=== PATIENT | female | born 1950 | race Caucasian/White ===

== ENCOUNTER → 2016-08-05 09:28 | Outpatient (CLI) | payer MEDICARE ==
[2016-01-18 14:34] VITALS: BMI 29.2
[~2016-08-05 09:28] MED LIST: ASMANEX0.24 GM INH; BROVANA15 MCG/2 M INH; CARAFATE1 G PO; CATAPRES TTS-10.1 MG TD; COREG25 MG PO; COZAAR50 MG PO; ELAVIL10 MG PO; ELIQUIS5 MG PO; HYDROCODON-ACE1 EAC7 PO; METFORMIN HCL500 M1 PO; MIRALAX17 GM PO; MUCINEX DM ER1 EAC1 PO; NORVASC5 MG PO; NP THYROID30 MG PO; PEPCID20 MG PO; PREDNISONE20 MG PO; PROTONIX40 MG PO; PULMICORT0.5 MG/21 INH; SINGULAIR10 MG PO; TRICOR145 MG PO; VITAMIN B-1000 MCG/M SQ; XOPENEX 1.1.25 MG/3 UPD; XOPENEX HFA15 GM INH; ZETIA10 MG PO
[2016-08-05 11:24] LABS: ALBUMIN 4.1 g/dL (3.4-5.0); BILIRUBIN - DIRECT 0.07 mg/dL (0.00-0.30); BILIRUBIN - INDIRECT 0.17 mg/dL (0.00-1.00); BILIRUBIN - TOTAL 0.24 mg/dL (0.2-1.3); PROTEIN - SERUM 7.2 g/dL (6.4-8.2)
== END | disposition home or self-care (01) ==
LOC: D.US 09:28
PROVIDERS: Internal Medicine Gastroenterology
DX: K76.0 Fatty (change of) liver, not elsewhere classified (principal)

== ENCOUNTER 2016-11-06 12:06 | Inpatient (IN) | payer MEDICARE ==
[~2016-11-06] VITALS: Ht 157.5 cm; Wt 74.6 kg
--- NOTE | ~2016-11-06 | HEMODYNAMI ---
PATIENT:MEHRAN LAMAR MEDICAL RECORD: [id number] : 54 LOC[id number] ADMISSION DATE: 11/06/16 Generatedon:11/07/201613:51 Patient name: MEHRAN LAMAR Patient #: [id number] SSN: DO B: 1950 Date of study: 11/07/2016 Page: Of Hemodynamic Procedure Report Patient Data Patient Demographics Procedure consent was obtained First Name: MEHRAN Gender: Female Last Name: BRIANDA : 1950 [facility] Initial: SHYAM Age: 66 year(s) Patient #: [id number] Race: Unknown Additional ID: [id number] Contact details Address: [address] [place] [address] State: [place] City: [place] Zip code: [address] Admission Admission Data Admission Date: 11/06/2016 Admission Time: 18:06 Room #: D.2122 Procedure Procedure Types Cath Procedure Diagnostic Procedure LHC LHC w/Coronaries w/Grafts Miscellaneous Procedures Moderate Sedation up to 15 minutes Peripheral Cath Diagnostic Procedure Cath Peripheral Four Vessel Arteriogram Procedure Description Procedure Date Procedure Date: 11/07/2016 Procedure Start Time: 13:31 Procedure End Time: 13:49 Procedure Staff Name Function Keith Maldonado MD Performing Physician Shaan Calle RT Scrub Kristine Williamson RN Nurse Chemo Santos RT Monitor Procedure Data Cath Procedure Fluoroscopy Diagnostic fluoroscopy Total fluoroscopy Time: 3.1 time: 3.1 min min Diagnostic fluoroscopy Total fluoroscopy dose: 384 dose: 384 mGy mGy Contrast Material Contrast Material Type Amount (ml) Isovue 300 102 Entry Location Entry Primary Successful Side Size Upsize Upsize Entry Closure Succes sful Closure Location (Fr) 1 (Fr) 2 (Fr) Remarks Device Remarks Femoral Right 5 Fr Exoseal artery Estimated blood loss: 10 ml Diagnostic catheters Device Type Used For End Catheter Placement Cordis 5Fr JL 4.0 Procedure Catheter (MP) Cordis 5Fr 3DRC Catheter Procedure (MP) Cordis 5Fr Pigtail Procedure Catheter (MP) Procedure Complications No complications Procedure Medications Medication Administration Route Dosage Oxygen NC 2 l/min Heparin Flush Bag added to field 2 bags (1000units/500ml NS) Lidocaine 2% added to field 20 Zofran I.V. 4 mg Morphine I.V. 4 mg Morphine I.V. 2 mg Morphine I.V. 2 mg Morphine I.V. 2 mg Lopressor I.V. 5 mg Morphine I.V. 2 mg Hemodynamics Rest Heart Rate: 67 (bpm) Pressure Samples Time Site Value (mmHg) Purpose Heart Use Rate(bpm) 13:34 AO 180/81(123) Snapshot 78 13:41 LV 200/-12,18 Snapshot 74 13:42 AO 190/75(124) Pullback 83 13:42 LV 196/18,41 Pullback 83 Gradients Valve Time Site 1 Site 2 Mean SEP/DFP Peak To Heart Use (mmHg) (sec/min) Peak Rate (mmHg) (bpm) Aortic 13:42 LV AO 31 21 6 83 196/18,41 190/75(124) Calculations Valve P-P Mean Valve Index Valve Source Name Gradient Area Flow (cm2) Aortic 6 31 6 31 Snapshots Pre Cath Intra NCS Post Cath Vital Signs Time Heart Resp SPO2 etCO2 XX4yeiq NIBP (mmHg) Rhythm Pain Sedation Rate (ipm) (%) (mmHg) (mmHg) Status Level (bpm) 12:59:52 74 23 93 0 0 179/79(124) NSR 0 (11) 10(A) , No pain 13:04:25 67 16 97 0 0 172/80(146) NSR 0 (11) 10(A) , No pain 13:08:55 69 16 98 0 0 174/86(124) NSR 0 (11) 10(A) , No pain 13:13:23 71 12 97 0 0 180/82(137) NSR 0 (11) 10(A) , No pain 13:17:54 72 13 98 0 0 167/84(140) NSR 0 (11) 10(A) , No pain 13:22:22 73 16 96 0 0 177/90(138) NSR 0 (11) 10(A) , No pain 13:26:54 74 16 96 0 0 177/88(135) NSR 0 (11) 10(A) , No pain 13:31:29 77 16 98 0 0 174/86(98) NSR 0 (11) 10(A) , No pain 13:35:57 84 16 97 0 0 188/92(140) NSR 0 (11) 10(A) , No pain 13:40:29 86 16 95 0 0 177/85(121) NSR 0 (11) 10(A) , No pain 13:45:00 84 21 96 0 0 186/95(143) NSR 0 (11) 10(A) , No pain 13:49:28 77 6 94 0 0 176/85(120) NSR 0 (11) 10(A) , No pain Medications Time Medication Route Dose Verified Delivered Reason Notes Effectiveness by by 13:10:42 Oxygen NC 2 Keith Kristine Per l/min JoelEdgar Williamson RN physician 13:10:51 Heparin Flush added 2 Keith Keiht used for Bag to bags [facility] procedure (1000units/500ml field MD LOPEZ NS) 13:10:59 Lidocaine 2% added 20ml Keith Keith used for to vial [facility] procedure field MD LOPEZ 13:12:06 Zofran I.V. 4 mg Keith Kristine Per JoelRylie Williamson RN physician 13:24:39 Morphine I.V. 4 mg Keith Kristine for sedation administe red Asher Clay DUVALL MD 13:28:13 Morphine I.V. 2 mg Keith Kristine for sedation administe red JoelEdgar DUVALL MD 13:30:16 Morphine I.V. 2 mg Keith Kristine for sedation administe red AsherEdgar DUVALL MD 13:36:59 Morphine I.V. 2 mg Keith Kristine for sedation administe red Asher Clay DUVALL MD 13:38:26 Lopressor I.V. 5 mg Keith Kristine for Asher Clay kumar MD 13:39:47 Morphine I.V. 2 mg Keith Kristine for sedation administe red Asher Clay DUVALL MD Procedure Log Time Note 12:25:14 Shaan Calle RT(R) sent for patient. Start room use. 12:33:20 Time tracking: Regular hours 12:33:25 Plan of Care:Hemodynamics will remain stable., Cardiac rhythm will remain stable., Comfort level will be maintained., Respiratory function will remain adequate., Patient/ family verbilizes understanding of procedure., Procedure tolerated without complication., Recovers from procedure without complications.. 12:48:53 Patient received from PCU to CCL 1 Alert and oriented. Tansferred to table in Supine position. 12:48:55 Warm blankets applied, and yvonne hugger turned on for patient comfort. 12:48:56 Correct patient and procedure confirmed by team. 12:48:57 Signed procedure consent form obtained from patient. 12:48:57 ECG and BP/O2 sat monitors applied to patient. 12:58:33 Vital chart was started 12:58:34 Baseline sample Acquired. 12:58:40 Rhythm: sinus rhythm 12:58:41 Full Disclosure recording started 12:58:47 H&P Date Dictated: 11/06/2016 Within 30 days and on chart., H&P Addendum completed by physician on day of procedure. (MUST COMPLETE FOR ALL OUTPATIENTS). 12:58:48 Pre-procedure instructions explained to patient. 12:58:48 Pre-op teaching completed and patient verbalized understanding. 12:58:50 Family in waiting room. 12:58:51 Patient NPO since Midnight. 12:58:52 Is the patient allergic to Iodine/contrast media? No. 12:59:00 Is patient on blood thinner?No 12:59:11 Patient diabetic? Yes. 12:59:18 Patient not . Patient is over age 55. 12:59:21 Previous problem with sedation/anesthesia? No ? 12:59:28 Pre procedure: right dorsailis pedis pulse 1+ Palpable, but thready & weak; easily obliterated 12:59:32 Patient pain scale 0/10 ?. 13:00:04 IV patent on arrival in right hand with 0.9% NaCl at KVO. 13:00:48 If diabetic: On Metformin? Yes 13:00:56 If on Metformin: Last Dose? 11/03/2016 13:02:56 Last dose of Eliquis was 11/03/16. 13:02:59 Snore? Yes 13:03:00 Sleep apnea? Yes 13:03:02 Deviated septum? No 13:03:02 Opens mouth fully? Yes 13:03:03 Sticks out tongue? Yes 13:03:09 Airway obstruction? Yes COPD, Asthma 13:03:33 Dentures? No ? 13:03:37 Lab results completed and on chart. 13:03:41 Right groin area was prepped with chlora-prep and draped in sterile fashion 13:03:42 Alarms reviewed by R. N. 13:03:43 Sharps counted by scrub and verified by R.N. 13:03:51 Use device set Femoral Dx 13:03:53 Tegaderm 4 x 4 opened to sterile field. 13:03:54 Acist Hand Control opened to sterile field. 13:03:54 Acist Manifold opened to sterile field. 13:03:56 Acist Syringe opened to sterile field. 13:03:56 Bag Decanter opened to sterile field. 13:03:57 Medline Cath Pack opened to sterile field. 13:03:57 Terumo 5Fr Broadway Sheath opened to sterile field. 13:03:57 St Aaron 260cm J .035 wire opened to sterile field. 13:03:58 Diagnostic Infinity 5Fr Multipack catheter opened to sterile field. 13:10:42 Oxygen 2 l/min NC was administered by Kristine Williamson RN; Per physician; 13:10:51 Heparin Flush Bag (1000units/500ml NS) 2 bags added to field was administered by Keith Maldonado MD; used for procedure; 13:10:59 Lidocaine 2% 20ml vial added to field was administered by Keith Maldonado MD; used for procedure; 13:11:21 Zero performed for pressure channel P1 13:11:40 Zero performed for pressure channel P1 13:12:06 Zofran 4 mg I.V. was administered by Kristine Williamson RN; Per physician; 13:23:23 --------ALL STOP TIME OUT------ 13:23:24 Final Timeout: patient, procedure, and site verified with staff and physician. All members of the team are in agreement. 13:23:36 Right groin site verified by team. 13:23:40 Physical assessment completed. ASA score P 2 - A patient with mild systemic disease as per Keith Maldonado MD. 13:23:43 Sedation plan: IV Moderate Sedation Morphine 13:24:39 Morphine 4 mg I.V. was administered by Kristine Williamson RN; for sedation; administered SIVP 13:28:13 Morphine 2 mg I.V. was administered by Kristine Williamson RN; for sedation; administered SIVP 13:30:16 Morphine 2 mg I.V. was administered by Kristine Williamson RN; for sedation; administered SIVP 13:31:32 Procedure started. 13:31:38 Local anesthetic to right femoral artery with Lidocaine 2% by Keith Maldonado MD.INITIAL ACCESS ONLY 13:33:06 A 5 Fr sheath was inserted into the Right Femoral artery 13:33:15 A Cordis 5Fr JL 4.0 Catheter (MP) was advanced over the wire and used for Procedure. 13:34:37 LCA angiography performed. 13:35:24 Catheter removed. 13:35:33 A Cordis 5Fr 3DRC Catheter (MP) was advanced over the wire and used for Procedure. 13:36:33 RCA angiography performed. 13:36:59 Morphine 2 mg I.V. was administered by Kristine Williamson RN; for sedation; administered SIVP 13:38:26 Lopressor 5 mg I.V. was administered by Kristine Williamson RN; for hypertension; 13:38:56 ANDREWS to Diag angiography performed. 13:39:45 Right subclavian angiography performed 13:39:47 Morphine 2 mg I.V. was administered by Kristine Williamson RN; for sedation; administered SIVP 13:39:54 Left subclavian angiography performed 13:40:00 Left carotid angiography performed. 13:40:11 Catheter removed. 13:40:18 A Cordis 5Fr Pigtail Catheter (MP) was advanced over the wire and used for Procedure. 13:40:39 Procedure type changed to Cath procedure, Diagnostic procedure, LHC, LHC w/Coronaries w/Grafts, Miscellaneous Procedures, Moderate Sedation up to 15 minutes, Peripheral Cath Diagnostic Procedure, Cath Peripheral, Four Vessel Arteriogram 13:42:21 LV angiography performed. 13:42:22 LV gram done using MARIE 13:42:31 EF : 55 % 13:42:47 LV hemodynamics recorded. 13:42:59 Injector settings: Ml/sec: 10, Volume: 20, 13:43:01 Catheter removed. 13:43:19 Cordis 5Fr Exoseal opened to sterile field. 13:44:32 Sheath removed intact; hemostasis achieved with Exoseal to the Right Femoral artery. 13:44:35 Procedure ended.(Physican Out) 13:46:18 Fluoroscopy time 03.10 minutes. 13:46:22 Fluoroscopy dose: 384 mGy 13:46:22 Flurop Dose total: 384 13:46:28 Contrast amount:Isovue 300 102ml. 13:46:31 Sharps counted by scrub and verified by R.N. 13:46:33 Insertion/operative site no bleeding no hematoma. 13:46:38 Post-op/insertion site Right Femoral artery dressed using a 4 x 4 and Tegaderm. 13:46:40 Post Procedure Pulses reassessed and unchanged 13:46:43 Post-procedure physical assessment completed. ASA score P 2 - A patient with mild systemic disease as per Keith Maldonado MD. 13:46:47 Post procedure rhythm: unchanged. 13:46:50 Estimated blood loss: 10 ml 13:46:53 Post procedure instruction explained to patient.Patient verbalizes understanding. 13:46:53 Patient needs reinforcement of post procedure teaching. 13:47:03 Procedure and supply charges have been captured, reviewed, submitted and are correct. 13:47:08 Procedure Complication : No complications 13:49:43 Vital chart was stopped 13:49:43 See physician's report for complete and final results. 13:49:46 Report given to PCU. 13:49:49 Patient transfered to PCU with Bed. 13:49:52 Procedure ended. 13:49:52 Full Disclosure recording stopped 13:49:57 End room use (Document Last) Device Usage Item Name Manufacture Quantity Catalog Hospital Part Current Minimal Lo t# / Number Charge Number Stock Stock Serial# Code Tegaderm 4 1 [id number] [id number] 767028 5 x 4 Acist Hand Acist 1 18067 443878 624743 494208 5 Control [employer] Inc Acist Acist 1 36333 005728 389623 540783 5 Manifold [employer] Inc Acist Acist 1 31306 265528 547697 525009 20 Syringe Medical Systems Inc Bag Microtek 1 2002S 105884 31559 869467 5 Clear Books. Medline Cardinal 1 [id number] 128790 92034 556834 5 FID3 Terumo 5Fr Terumo 1 [id number] 102332 470086 366922 [address] Aaron 1 421820 236575 482450 310239 30 260cm J .035 wire Diagnostic Cardinal 1 [id number] 523537 30408 646028 30 Infinity Health 5Fr Multipack catheter Cordis 5Fr Cardinal 1 053472 5 JL 4.0 Health Catheter (MP) Cordis 5Fr Cardinal 1 399991 5 3DRC Health Catheter (MP) Cordis 5Fr Cardinal 1 224451 5 Pigtail Health Catheter (MP) Cordis 5Fr Cardinal 1 EX500 242491 534806 484544 10 Physician Practice [employer] Signature Audit [place] Stage Time Signature Unsigned Intra-Procedure 11/07/2016 Chemo Santos 1:51:45 PM RT(R) Signatures Monitor : Chemo Santos RT Signature : Date : Time : [address] [address]
[2016-11-06 12:32] LABS: BASOPHILS 0.4 % (0.0-2.0); EOSINOPHILS 0 % (0-7); HEMATOCRIT 36.7 % (36.0-48.0); IMMATURE GRANULOCYTES 0.3 % (0-5); LYMPHOCYTES 34.9 % (15-50); MCH 26.8 pg (26.0-34.0); MCHC 32.7 g/dL (31.0-37.0); MCV 82.1 fL (80.0-100.0); MEAN PLATELET VOLUME 10.5 fL (7.4-10.4); MONOCYTES 8.5 % (2-11); NEUTROPHILS 55.9 % (40-80); PLATELET COUNT 284 10x3/uL (130-400); RBC 4.47 10x6/uL (4.00-5.40); RDW 13.3 % (11.5-14.5); WBC 7.2 10x3/uL (4.8-10.8)
[2016-11-06 12:47] LABS: ALBUMIN 3.7 g/dL (3.4-5.0); ALKALINE PHOSPHATASE 120 U/L (46-116); ALT (SGPT) 29 U/L (10-68); BILIRUBIN - TOTAL 0.23 mg/dL (0.2-1.3); CALC OSMOLALITY 280 mosm/kg (275-300); CALCIUM 8.7 mg/dL (8.5-10.1); CARBON DIOXIDE 25.7 mmol/L (21.0-32.0); CHLORIDE - SERUM 105 mmol/L (98-107); CREATININE - SERUM 0.7 mg/dL (0.6-1.3); GLUCOSE 123 mg/dL (74-106); POTASSIUM - SERUM 3.8 mmol/L (3.5-5.1); PROTEIN - SERUM 7.3 g/dL (6.4-8.2); SODIUM 141 mmol/L (136-145); UREA NITROGEN 9 mg/dL (7-18); eGFR NON AFRICAN AMERICAN 89 mL/min (90-120)
[2016-11-06 12:58] LABS: CHOL - HDL RATIO 10.5 ratio (2.3-4.1); CHOLESTEROL, TOTAL 366 mg/dL (0-200); CKMB 0.7 U/L (0.0-3.6); CREATINE KINASE 23 UL (21-215); HDL CHOLESTEROL 35 mg/dL (32-96); TRIGLYCERIDE 442 mg/dL (30-200)
[2016-11-06 13:08] LABS: TROPONIN-I < 0.017 ng/mL (0.000-0.060)
[2016-11-06 17:29] LABS: CKMB 0.7 U/L (0.0-3.6); CREATINE KINASE 18 UL (21-215)
[2016-11-06 17:36] LABS: TROPONIN-I < 0.017 ng/mL (0.000-0.060)
--- NOTE | 2016-11-06 22:38 | NUR ---
NEWLY ORDERED HS MEDS GIVEN TO PT. EXPLAINED TO HER THAT IS SHE HAS CHEST PAIN, SHE CAN REQUEST IV MORPHINE. PT NOW EATING A SANDWICH. WILL MONITOR.
[2016-11-06 22:52] LABS: CKMB 0.4 U/L (0.0-3.6); CREATINE KINASE 12 UL (21-215); TROPONIN-I < 0.017 ng/mL (0.000-0.060)
[2016-11-07 03:05] VITALS: BP 144/42; Ht 157.5 cm; Wt 74.6 kg
--- NOTE | 2016-11-07 04:00 | NUR ---
PT RESTING WITH NO DISTRESS. SALINE LOCK TO RIGHT HAND. O2 @ 2L/NC WITH NON LABORED RESPIRATIONS. SR PER TELEMETRY. NPO UNTIL SEEN BY DAYCARE WORKER IN AM.
[2016-11-07 05:09] LABS: BASOPHILS 0.5 % (0.0-2.0); EOSINOPHILS 0 % (0-7); HEMOGLOBIN 10.6 g/dL (12-16); IMMATURE GRANULOCYTES 0.3 % (0-5); LYMPHOCYTES 43.5 % (15-50); MCH 26.6 pg (26.0-34.0); MCHC 32.1 g/dL (31.0-37.0); MCV 82.9 fL (80.0-100.0); MEAN PLATELET VOLUME 10.6 fL (7.4-10.4); MONOCYTES 9.8 % (2-11); NEUTROPHILS 45.9 % (40-80); PLATELET COUNT 259 10x3/uL (130-400); RBC 3.98 10x6/uL (4.00-5.40); RDW 13.6 % (11.5-14.5); WBC 5.8 10x3/uL (4.8-10.8)
[2016-11-07 05:39] LABS: ALBUMIN 3.2 g/dL (3.4-5.0); ALKALINE PHOSPHATASE 95 U/L (46-116); ALT (SGPT) 30 U/L (10-68); BILIRUBIN - TOTAL 0.25 mg/dL (0.2-1.3); CALC OSMOLALITY 282 mosm/kg (275-300); CALCIUM 8.5 mg/dL (8.5-10.1); CHLORIDE - SERUM 105 mmol/L (98-107); CKMB 0.9 U/L (0.0-3.6); CREATINE KINASE 13 UL (21-215); CREATININE - SERUM 0.7 mg/dL (0.6-1.3); GLUCOSE 117 mg/dL (74-106); PROTEIN - SERUM 6.5 g/dL (6.4-8.2); SODIUM 142 mmol/L (136-145); UREA NITROGEN 10 mg/dL (7-18); eGFR NON AFRICAN AMERICAN 89 mL/min (90-120)
[2016-11-07 05:42] LABS: TROPONIN-I < 0.017 ng/mL (0.000-0.060)
[2016-11-07 07:55] VITALS: BP 155/74
--- NOTE | 2016-11-07 08:29 | NUR ---
ASSESSMENT COMPLETED. TELEMERTY SHOWS SR, O2 AT 2 L/M PER NC. RIGHT HAND IV WITH NS AT 75. DENIES ANY NEEDS. CALL LIGHTIN REACH WITH SR UP
[2016-11-07 11:25] VITALS: BP 150/72
--- NOTE | 2016-11-07 11:35 | NUR ---
PT GOING TO DRAG SAWYER. VALIUM 5 MG PO GIVEN FOR PRE OP. PT STATES SHES ALLERGIC TO BENADRYL SO NONE WAS GIVEN. TO DRAG SAWYER PER BED
--- NOTE | 2016-11-07 11:46 | NUR ---
PT WAITING FOR CATH. DENIES ANY NEEDS. CALL LIGHT IN REACH WITH SR UP. WILL MONITOR
--- NOTE | 2016-11-07 13:15 | NUR ---
PT BACK FROM VERIFICATION MANAGER. V/S STABLE. RIGHT GROIN SOFT WITH DRSG DRY AND INTACT.TELEMERTY SHOWS SR. WILL MONITOR
--- NOTE | 2016-11-07 15:19 | NUR ---
V/S STABLE. RIGHT GROIN SOFT WITH DRSG DRY AND INTACT,PPP. TELEMERTY SHOWS SR. CALL LIGHT IN REACH WITH SR UP. TYLENOL 1000MG GIVEN FOR HEADACHE. WILL MONITOR
--- NOTE | 2016-11-07 17:02 | NUR ---
Patient Name: MEHRAN LAMAR Admission Status: ER Accout number: [id number] Admission Date: 11-06-2016 : 1950 Admission Diagnosis: Attending: RYAN Current LOS: 1 Anticipated DC Date: 11-07-2016 Planned Disposition: Home Primary Insurance: [employer] CHOICE PPO MCR ADVANT Discharge Planning Comments: * Is the patient Alert and Oriented? Yes 0 * How many steps to enter\exit or inside your home? NONE 0 * PCP [address] 0 * Pharmacy [facility] 0 * Preadmission Environment Home Alone 0 * ADLs Independent 0 * Equipment None 0 * Other Equipment NO MEDICAL EQUIPMENT PROVIDER PREFERENCE 0 * List name and contact numbers for known caregivers / representatives who currently or will assist patient after discharge: MAIRA VARGAS, SISTER, JACINTO FLORES, COUSIN, PHONE UNKNOWN -LIVES IN [place] 0 * Community resources currently utilized None 0 * Please name any agencies selected above. NONE 0 * Additional services required to return to the preadmission environment? No 0 * Can the patient safely return to the preadmission environment? Yes 0 * Has this patient been hospitalized within the prior 30 days at any hospital? No 0 CM MET WITH PT IN ROOM TO DISCUSS DISCHARGE PLANNING AND NEEDS. PT REPORTS LIVING AT HOME INDEPENDENTLY AND ALONE. PT HAS NO MEDICAL EQUIPMENT AND NO OUTSIDE SERVICES ASSISTING IN THE HOME. CM DISCUSSED AVAILABILITY OF HOME HEALTH, REHAB SERVICES AND MEDICAL EQUIPMENT. PT DENIES DISCHARGE NEEDS, REPORTS FAMILY OR A FRIEND WILL PICK HER UP FOR DISCHARGE HOME. Humidifier Maintenance Worker: Tres Mckinley
--- NOTE | 2016-11-07 18:02 | NUR ---
LYING QUIETLY. STATES HER NAUSEA IS BETTER. RIGHT GROIN SOFT WITH DRSG DRY AND INTACT. WILL MONITOR
--- NOTE | 2016-11-07 19:27 | NUR ---
RESUMED CARE OF PT, LYING IN BED RESPIRAITONS EVEN AND UNLABORED ON 2LPM VIA NC. RIGHT HAND SALINE LOCKED. 79 SR ON TELEMETRY. PLAN OF CARE DISCUSSED. CALL LIGHT IN REACH. WILL CONTINUE TO MONITOR. SEE NURSE ASSESSMENT.
[2016-11-07 20:00] VITALS: BP 160/72
--- NOTE | 2016-11-07 21:29 | NUR ---
ZOFRAN 4MG IVP GIVEN FOR VOMITTING. ALL NIGHT MEDS WERE LOST, WILL CONTINUE TO MONITOR. AND ATTEMPT MEDS AGAIN IF PT REQUESTS THEM
[2016-11-08] VITALS: BP 194/93
[2016-11-08 04:00] VITALS: BP 171/79
--- NOTE | 2016-11-08 04:18 | NUR ---
SUPERVISOR HEADING AT BEDSIDE TO OBTAIN VITALS, CALL LIGHT IN REACH. WILL CONTINUE WITH PLAN OF CARE.
--- NOTE | 2016-11-08 06:33 | NUR ---
NO CHANGES FROM PREVIOUS ASSESSMENT, CALL LIGHT IN REACH.
--- NOTE | 2016-11-08 07:23 | NUR ---
ASSESSMENT COMPLETED. TELEMERTY SHOWS SR 73. PT IS UP AB ALOK. ALERT AND ORIENTED, C/O BEING NAUSATED, WILL TREAT. SR UP WITH CALL LIGHT IN REACH
[2016-11-08 08:58] VITALS: BP 182/80
--- NOTE | 2016-11-08 09:54 | NUR ---
LYING QUIETLY. NO C/O NAUSEA OR HEADACHE. TELEMERTY SHOWS SR. WILL MONITOR
[2016-11-08 10:51] LABS: BASOPHILS 0.2 % (0.0-2.0); EOSINOPHILS 0 % (0-7); HEMATOCRIT 34.2 % (36.0-48.0); IMMATURE GRANULOCYTES 0.2 % (0-5); LYMPHOCYTES 13.6 % (15-50); MCH 26.4 pg (26.0-34.0); MCHC 32.2 g/dL (31.0-37.0); MEAN PLATELET VOLUME 10.8 fL (7.4-10.4); MONOCYTES 7.1 % (2-11); NEUTROPHILS 78.9 % (40-80); PLATELET COUNT 276 10x3/uL (130-400); RBC 4.17 10x6/uL (4.00-5.40); RDW 13.7 % (11.5-14.5)
[2016-11-08 10:57] LABS: WBC 12.1 10x3/uL (4.8-10.8)
[2016-11-08 13:16] VITALS: BP 149/71
--- NOTE | 2016-11-08 17:05 | NUR ---
C/O NAUSA.ZOFRAN 8MG IV GIVEN FOR RELIEF. WILL MONITOR
[2016-11-08 17:21] VITALS: BP 141/56
--- NOTE | 2016-11-08 17:38 | NUR ---
DENIES ANY FUTHER NAUSEA. ATE 75 % OF HER MEAL. TELEMERTY SHOWS SR. WILL MONITOR
[2016-11-08 19:00] VITALS: BP 148/62
--- NOTE | 2016-11-08 19:00 | NUR ---
RECEIVED REPORT AND ASSUMED PT CARE FROM DAY SHIFT NURSE @ THIS TIME.
--- NOTE | 2016-11-08 23:08 | NUR ---
PT RESTING QUIETLY WITHOUT C/O OR DISTRESS NOTED. FEW NEEDS VOICED. CALL LIGHT WITHIN REACH. WILL CONT TO MONITOR.
[2016-11-09] VITALS: BP 158/76
--- NOTE | 2016-11-09 03:02 | NUR ---
PT RESTING WELL, NO CHANGES NOTED IN ASSESSMENT. FEW NEEDS VOICED. CALL LIGHT WITHIN REACH. WILL CONT TO MONITOR.
[2016-11-09 04:00] VITALS: BP 115/78
[2016-11-09 04:46] LABS: BASOPHILS 0.3 % (0.0-2.0); EOSINOPHILS 0 % (0-7); HEMATOCRIT 31.8 % (36.0-48.0); HEMOGLOBIN 10.1 g/dL (12-16); IMMATURE GRANULOCYTES 0.2 % (0-5); LYMPHOCYTES 28.1 % (15-50); MCH 26.4 pg (26.0-34.0); MCHC 31.8 g/dL (31.0-37.0); MONOCYTES 10.9 % (2-11); NEUTROPHILS 60.5 % (40-80); PLATELET COUNT 229 10x3/uL (130-400); RBC 3.83 10x6/uL (4.00-5.40); RDW 13.6 % (11.5-14.5)
[2016-11-09 04:48] LABS: WBC 8.6 10x3/uL (4.8-10.8)
[2016-11-09 05:09] LABS: ALBUMIN 3.1 g/dL (3.4-5.0); ALKALINE PHOSPHATASE 92 U/L (46-116); ALT (SGPT) 30 U/L (10-68); BILIRUBIN - TOTAL 0.39 mg/dL (0.2-1.3); CALC OSMOLALITY 281 mosm/kg (275-300); CALCIUM 8.4 mg/dL (8.5-10.1); CARBON DIOXIDE 27.3 mmol/L (21.0-32.0); CHLORIDE - SERUM 107 mmol/L (98-107); CREATININE - SERUM 0.7 mg/dL (0.6-1.3); GLUCOSE 114 mg/dL (74-106); POTASSIUM - SERUM 3.7 mmol/L (3.5-5.1); PROTEIN - SERUM 6.3 g/dL (6.4-8.2); SODIUM 142 mmol/L (136-145); UREA NITROGEN 7 mg/dL (7-18); eGFR NON AFRICAN AMERICAN 89 mL/min (90-120)
[2016-11-09 08:00] VITALS: BP 147/64
[2016-11-09 12:00] VITALS: BP 139/85
[2016-11-09 15:59] VITALS: BP 167/71
--- NOTE | 2016-11-09 16:09 | NUR ---
PT C/O BEING NAUSEATED AND HAVING PAIN. REQUESTED AND PROVIDED PT WITH PRN ZOFRAN AND PRN MORPHINE. PT HASNT THROWN UP TODAY AND IS FEELING BETTER BUT STILL DOESNT FEEL GOOD ENOUGH TO BE DISCHARGED. PT ON 2L NC WILL WEAN OFF R/T NOT BEING ON IT AT HOME AND O2 SATS RUNNING 98% PT DENIES ANY FURTHER NEEDS AT THIS TIME. WILL CPOC.
[2016-11-09 20:57] VITALS: BP 139/64
[2016-11-10 00:30] VITALS: BP 175/70
[2016-11-10 04:30] VITALS: BP 200/105
[2016-11-10 05:51] LABS: BASOPHILS 0.3 % (0.0-2.0); EOSINOPHILS 0 % (0-7); HEMATOCRIT 31.6 % (36.0-48.0); HEMOGLOBIN 10.1 g/dL (12-16); IMMATURE GRANULOCYTES 0.1 % (0-5); LYMPHOCYTES 32.5 % (15-50); MCH 26.7 pg (26.0-34.0); MCV 83.6 fL (80.0-100.0); MEAN PLATELET VOLUME 10.8 fL (7.4-10.4); MONOCYTES 11.7 % (2-11); NEUTROPHILS 55.4 % (40-80); PLATELET COUNT 236 10x3/uL (130-400); RBC 3.78 10x6/uL (4.00-5.40); RDW 13.7 % (11.5-14.5); WBC 7.3 10x3/uL (4.8-10.8)
[2016-11-10 06:03] LABS: AMYLASE - SERUM 20 U/L (25-115); CALC OSMOLALITY 276 mosm/kg (275-300); CALCIUM 8.5 mg/dL (8.5-10.1); CARBON DIOXIDE 27.1 mmol/L (21.0-32.0); CHLORIDE - SERUM 106 mmol/L (98-107); CREATININE - SERUM 0.6 mg/dL (0.6-1.3); GLUCOSE 111 mg/dL (74-106); LIPASE 86 U/L (73-393); POTASSIUM - SERUM 3.5 mmol/L (3.5-5.1); SODIUM 140 mmol/L (136-145); eGFR NON AFRICAN AMERICAN > 90 mL/min (90-120)
[2016-11-10 06:04] LABS: UREA NITROGEN 4 mg/dL (7-18)
--- NOTE | 2016-11-10 06:29 | NUR ---
PT B/P REMAINS ELEVATED. C/O HEADACHE. STATES WEARING CLONIDINE PATCH AND THAT IT WAS DUE TO BE CHANGED ON FRIDAY. WILL RELAY TO DAY SHIFT NURSE. IN THE MEANTIME, COREG 25 MG SCHEDULED GIVEN EARLY FOR PT'S HYPERTENSIVE STATE. PT ALSO GIVEN FIOCICET FOR C/O HEADACHE THIS AM. WILL MONITOR.
[2016-11-10 08:18] VITALS: BP 167/75
[2016-11-10 12:42] VITALS: BP 152/62
[2016-11-10 16:00] VITALS: BP 124/70
--- NOTE | 2016-11-10 19:45 | NUR ---
RESUMED CARE OF PT, LYING IN BED RESPIRATIONS EVEN AND UNLABORED ON ROOM AIR. PLACED BACK ON TELEMETRY 58 SB. RIGHT WRIST SALINE LOCKED. CALL LIGHT IN REACH. WILL CONTINUE TO MONITOR. SEE NURSE ASSESSMENT.
[2016-11-10 20:48] VITALS: BP 166/56
[2016-11-11 00:30] VITALS: BP 181/82
[2016-11-11 04:30] VITALS: BP 169/79
[2016-11-11 04:59] LABS: BASOPHILS 0.3 % (0.0-2.0); EOSINOPHILS 0 % (0-7); HEMATOCRIT 32.9 % (36.0-48.0); HEMOGLOBIN 10.7 g/dL (12-16); IMMATURE GRANULOCYTES 0.3 % (0-5); LYMPHOCYTES 29.1 % (15-50); MCH 26.7 pg (26.0-34.0); MCHC 32.5 g/dL (31.0-37.0); MEAN PLATELET VOLUME 10.9 fL (7.4-10.4); MONOCYTES 10.7 % (2-11); NEUTROPHILS 59.6 % (40-80); PLATELET COUNT 259 10x3/uL (130-400); RBC 4.01 10x6/uL (4.00-5.40); RDW 13.3 % (11.5-14.5); WBC 7.2 10x3/uL (4.8-10.8)
--- NOTE | 2016-11-11 06:30 | NUR ---
ZOFRAN 8MG IVP GIVEN FOR NAUSEA. NO VOMITTING LAST NIGHT. STATES SHE FEELS BETTER. WILL CONTINUE TO MONITOR. CALL LIGHT IN REACH.
[2016-11-11 06:35] LABS: CALCIUM 8.9 mg/dL (8.5-10.1); CARBON DIOXIDE 25.4 mmol/L (21.0-32.0); CHLORIDE - SERUM 107 mmol/L (98-107); GLUCOSE 115 mg/dL (74-106); POTASSIUM - SERUM 3.5 mmol/L (3.5-5.1); SODIUM 145 mmol/L (136-145); eGFR NON AFRICAN AMERICAN 76 mL/min (90-120)
[2016-11-11 06:37] LABS: CALC OSMOLALITY 287 mosm/kg (275-300); CREATININE - SERUM 0.8 mg/dL (0.6-1.3); UREA NITROGEN 8 mg/dL (7-18)
--- NOTE | 2016-11-11 07:34 | NUR ---
ASSESSMENT COMPLETED. TELEMERTY SHOWS SB WITH A RATE OF 55. PT IS ON ROOM AIR. RIGHT FOREARM SL. ALERT AND ORIENTED. DENIES ANY NEEDS. HOB UP. SR UP WITH CALL LIGHT IN REACH
[2016-11-11 08:00] VITALS: BP 169/63
[2016-11-11] MEDS ORDERED: ONDANSETRON4 MG/2 M3 PO (10:01)
--- NOTE | 2016-11-11 10:40 | NUR ---
LYING QUIETLY.DENIES ANY NEEDS. CALL LIGHT IN REACH WITH SR UP. WILL MONITOR
--- NOTE | 2016-11-11 11:22 | NUR ---
Patient Name: MEHRAN LAMAR Encounter No: [id number] : 1950 Primary Insurance: [employer] CHOICE PPO MCR ADVANT Anticipated DC Date: 11-11-2016 Planned Disposition: Home DCP follow-up note: CM MET WITH PT IN ROOM TO DISCUSS DISCHARGE NEEDS AND PLANNING. CM DISCUSSED AVAILABILITY OF HOME HEALTH, REHAB SERVICES AND MEDICAL EQUIPMENT. PT DENIES DISCHARGE NEEDS. COUSIN TO TRANSPORT HOME AT DISCHARGE. IMPORTANT MESSAGE FROM MEDICARE PROVIDED AND EXPLAINED. Tres Mckinley, CASE MANAGEMENT
--- NOTE | 2016-11-11 12:40 | OP ---
PATIENT NAME: MEHRAN LAMAR MEDICAL RECORD: [id number] :[birth year] LOCATION:D.M2 D.2122 ADMISSION DATE:11/06/16 SURGEON: DOMINGA CLAIRE MD DATE OF OPERATION: 11/07/2016 PROCEDURE: Four-vessel arteriography. RIGHT SYSTEM: Right common carotid is a smooth-walled vessel, free of disease. Right external carotid is smooth-walled vessel, free of disease. Right internal carotid is smooth-walled vessel, free of disease. LEFT SYSTEM: Left common carotids were selectively engaged. Findings are as follows: 1. Left common carotid smooth-walled vessel free of disease. 2. Left external carotid smooth-walled vessel, free of disease. 3. Left internal carotid smooth-walled vessel, free of disease. IMPRESSION: No evidence of significant atherosclerotic disease in either carotid systems. TRANSINT:[id number] Voice Confirmation ID: [id number] DOCUMENT ID: [id number] DOMINGA CLAIRE MD at 1240 CC: [id number] DICTATION DATE: 11/07/16 1359 PERMIT SPECIALIST: 11/07/16 1710 ADM IN [place] [id number] [place] [address]
--- NOTE | 2016-11-11 12:40 | OP ---
PATIENT NAME: MEHRAN LAMAR MEDICAL RECORD: [id number] :[birth year] LOCATION:D.M2 D.2122 ADMISSION DATE:11/06/16 SURGEON: DOMINGA CLAIRE MD DATE OF OPERATION: 11/07/2016 PROCEDURE: Left heart catheterization, selective coronary angiography, right femoral artery approach. CATHETERS: A 5-Polish sheath, 5/4 left and right Pat, 5/4 pig. The procedure was well tolerated ____ four-vessel arteriography. FINDINGS: Left ventriculography in 30-degree MARIE view. Normal wall motion, normal systolic function. CORONARY ANATOMY: Left main: Left main is free of disease. LAD: The area of previous stenting is widely patent. There is a large diagonal branch which is totally occluded. CIRCUMFLEX: Circumflex is free of disease. Area previously seen was widely patent. RIGHT CORONARY ARTERY: Widely patent. ANDREWS to diagonal is widely patent. 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 Noncardiac cause of chest. TRANSINT:[id number] Voice Confirmation ID: [id number] DOCUMENT ID: [id number] DOMINGA CLAIRE MD at 1240 CC: [id number] DICTATION DATE: 11/07/16 1357 GLOBAL TRANSPORTATION MANAGER: 11/07/16 1656 ADM IN [place] [id number] [place] [address]
--- NOTE | 2016-11-11 14:59 | NUR ---
PT DICSHARGED .IV DCD WITH TIP INTACT. INSTRUCTIONS GIVEN, TO PRIVATE CAR PER WHEELCHAIR.
== END 2016-11-11 15:03 | disposition home or self-care (01) | DRG 287 ==
LOC: D.ER 12:06 → D.M2 18:06
PROVIDERS: Family Medicine; Internal Medicine Cardiovascular Disease; ADMIT Family Medicine
PROC: 4A023N7 Measurement of Cardiac Sampling and Pressure, Left Heart, Percutaneous Approach (ICD-10-PCS; 2016-11-07)
PROC: B3151ZZ Fluoroscopy of Bilateral Common Carotid Arteries using Low Osmolar Contrast (ICD-10-PCS; 2016-11-07)
PROC: B31G1ZZ Fluoroscopy of Bilateral Vertebral Arteries using Low Osmolar Contrast (ICD-10-PCS; 2016-11-07)
PROC: B3121ZZ Fluoroscopy of Left Subclavian Artery using Low Osmolar Contrast (ICD-10-PCS; 2016-11-07)
PROC: B2111ZZ Fluoroscopy of Multiple Coronary Arteries using Low Osmolar Contrast (ICD-10-PCS; principal; 2016-11-07 10:00)
PROC: B2151ZZ Fluoroscopy of Left Heart using Low Osmolar Contrast (ICD-10-PCS; 2016-11-07 10:00)
DX: R07.89 Other chest pain (principal); R10.9 Unspecified abdominal pain; R51 Headache; R11.2 Nausea with vomiting, unspecified; I10 Essential (primary) hypertension; E11.9 Type 2 diabetes mellitus without complications; Z86.73 Personal history of transient ischemic attack (TIA), and cerebral infarction without residual deficits

== ENCOUNTER → 2017-02-03 08:58 | Outpatient (CLI) | payer MEDICARE ==
[2016-11-07 03:05] VITALS: BMI 29.9
[~2017-02-03 08:58] MED LIST changes: +ONDANSETRON4 MG/2 M3 PO
[2017-02-03 11:01] LABS: ALBUMIN 3.6 g/dL (3.4-5.0); BILIRUBIN - DIRECT 0.11 mg/dL (0.00-0.30); BILIRUBIN - INDIRECT 0.28 mg/dL (0.00-1.00); BILIRUBIN - TOTAL 0.39 mg/dL (0.2-1.3); PROTEIN - SERUM 7.5 g/dL (6.4-8.2)
== END | disposition home or self-care (01) ==
LOC: D.US 08:58
PROVIDERS: Internal Medicine Gastroenterology
DX: K76.0 Fatty (change of) liver, not elsewhere classified (principal)

== ENCOUNTER → 2017-02-20 16:23 | Outpatient (CLI) | payer MEDICARE ==
[2016-11-07 03:05] VITALS: BMI 29.9
== END | disposition home or self-care (01) ==
LOC: D.RAD 16:23
DX: M54.5 Low back pain (principal); M54.6 Pain in thoracic spine

== ENCOUNTER → 2017-03-14 12:43 | Outpatient (CLI) | payer MEDICARE ==
[2016-11-07 03:05] VITALS: BMI 29.9
== END | disposition home or self-care (01) ==
LOC: D.CT 12:43
DX: M54.5 Low back pain (principal); M54.6 Pain in thoracic spine

== ENCOUNTER 2017-04-30 15:32 | Emergency (ER) | payer MEDICARE ==
[2016-11-07 03:05] VITALS: BMI 29.9
== END 2017-04-30 19:00 | disposition home or self-care (01) ==
LOC: D.ER 15:32
DX: M62.838 Other muscle spasm (principal)

== ENCOUNTER 2017-05-02 11:00 | Emergency (ER) | payer MEDICARE ==
[2016-11-07 03:05] VITALS: BMI 29.9
[2017-05-02 11:39] LABS: BASOPHILS 0.5 % (0-2); EOSINOPHILS 0 % (0-7); HEMATOCRIT 32.7 % (36.0-48.0); HEMOGLOBIN 10.6 g/dL (12-16); IMMATURE GRANULOCYTES 0.3 % (0-5); LYMPHOCYTES 38.4 % (15-50); MCH 26.8 pg (26.0-34.0); MCHC 32.4 g/dL (31.0-37.0); MCV 82.6 fL (80.0-100.0); MEAN PLATELET VOLUME 10.9 fL (7.4-10.4); MONOCYTES 9.9 % (2-11); NEUTROPHILS 50.9 % (40-80); RBC 3.96 10x6/uL (4.00-5.40); RDW 14.1 % (11.5-14.5); WBC 7.4 10x3/uL (4.8-10.8)
[2017-05-02 11:40] LABS: PLATELET COUNT 134 10x3/uL (130-400)
[2017-05-02 12:02] LABS: ALBUMIN 3.3 g/dL (3.4-5.0); ALKALINE PHOSPHATASE 133 U/L (46-116); ALT (SGPT) 45 U/L (10-68); BILIRUBIN - TOTAL 0.33 mg/dL (0.2-1.3); CALC OSMOLALITY 272 mosm/kg (275-300); CALCIUM 8.6 mg/dL (8.5-10.1); CARBON DIOXIDE 25.8 mmol/L (21.0-32.0); CHLORIDE - SERUM 101 mmol/L (98-107); CREATININE - SERUM 0.6 mg/dL (0.6-1.3); GLUCOSE 117 mg/dL (74-106); POTASSIUM - SERUM 4.3 mmol/L (3.5-5.1); PROTEIN - SERUM 6.3 g/dL (6.4-8.2); SODIUM 136 mmol/L (136-145); UREA NITROGEN 13 mg/dL (7-18); eGFR NON AFRICAN AMERICAN > 90 mL/min (90-120)
[2017-05-02 12:58] LABS: APPEARANCE CLEAR (CLEAR); BILIRUBIN NEGATIVE (NEGATIVE); COLOR YELLOW (YELLOW); GLUCOSE NEGATIVE (NEGATIVE); KETONE NEGATIVE (NEGATIVE); NITRITE NEGATIVE (NEGATIVE); PROTEIN NEGATIVE (NEGATIVE); UROBILINOGEN NORMAL (NORMAL)
[2017-05-02 13:09] LABS: UDS - AMPHET NEGATIVE QUAL (NEGATIVE); UDS - BARB POSITIVE QUAL (NEGATIVE); UDS - BENZO POSITIVE QUAL (NEGATIVE); UDS - COCAINE NEGATIVE QUAL (NEGATIVE); UDS - OPIATE POSITIVE QUAL (NEGATIVE); UDS - PCP NEGATIVE QUAL (NEGATIVE); UDS - THC NEGATIVE QUAL (NEGATIVE)
== END 2017-05-02 16:00 | disposition home or self-care (01) ==
LOC: D.ER 11:00
PROVIDERS: Emergency Medicine; Physician Assistant
DX: Z87.820 Personal history of traumatic brain injury (principal); E11.9 Type 2 diabetes mellitus without complications; Z86.79 Personal history of other diseases of the circulatory system; I10 Essential (primary) hypertension; R00.1 Bradycardia, unspecified

== ENCOUNTER 2017-05-03 14:57 | Emergency (ER) | payer MEDICARE ==
[2016-11-07 03:05] VITALS: BMI 29.9
== END 2017-05-03 16:20 | disposition home or self-care (01) ==
LOC: D.ER 14:57
DX: M62.838 Other muscle spasm (principal); I10 Essential (primary) hypertension

== ENCOUNTER 2017-05-08 11:39 | Emergency (ER) | payer MEDICARE ==
[2016-11-07 03:05] VITALS: BMI 29.9
[2017-05-08 13:00] LABS: BASOPHILS 0.6 % (0-2); EOSINOPHILS 0 % (0-7); HEMATOCRIT 35.9 % (36.0-48.0); IMMATURE GRANULOCYTES 0.6 % (0-5); MCH 27.2 pg (26.0-34.0); MCHC 33.4 g/dL (31.0-37.0); MCV 81.4 fL (80.0-100.0); MEAN PLATELET VOLUME 9.9 fL (7.4-10.4); MONOCYTES 8.3 % (2-11); NEUTROPHILS 56.5 % (40-80); RBC 4.41 10x6/uL (4.00-5.40); RDW 14.6 % (11.5-14.5); WBC 6.6 10x3/uL (4.8-10.8)
[2017-05-08 13:11] LABS: ALBUMIN 3.4 g/dL (3.4-5.0); ALKALINE PHOSPHATASE 160 U/L (46-116); ALT (SGPT) 83 U/L (10-68); BILIRUBIN - TOTAL 0.36 mg/dL (0.2-1.3); CALC OSMOLALITY 279 mosm/kg (275-300); CALCIUM 9.2 mg/dL (8.5-10.1); CARBON DIOXIDE 24.3 mmol/L (21.0-32.0); CHLORIDE - SERUM 104 mmol/L (98-107); CREATINE KINASE 34 UL (21-215); CREATININE - SERUM 0.6 mg/dL (0.6-1.3); GLUCOSE 135 mg/dL (74-106); POTASSIUM - SERUM 3.7 mmol/L (3.5-5.1); SODIUM 140 mmol/L (136-145); UREA NITROGEN 10 mg/dL (7-18); eGFR NON AFRICAN AMERICAN > 90 mL/min (90-120)
[2017-05-08 13:38] LABS: PLATELET COUNT 164 10x3/uL (130-400)
== END 2017-05-08 18:15 | disposition home or self-care (01) ==
LOC: D.ER 11:39
PROVIDERS: Physician Assistant
DX: M54.6 Pain in thoracic spine (principal); I10 Essential (primary) hypertension; E11.9 Type 2 diabetes mellitus without complications

== ENCOUNTER 2017-05-10 04:49 | Emergency (ER) | payer MEDICARE ==
[2016-11-07 03:05] VITALS: BMI 29.9
[2017-05-10 05:32] LABS: BASOPHILS 0.4 % (0-2); EOSINOPHILS 0 % (0-7); HEMATOCRIT 32.9 % (36.0-48.0); HEMOGLOBIN 10.6 g/dL (12-16); IMMATURE GRANULOCYTES 0.4 % (0-5); LYMPHOCYTES 52.3 % (15-50); MCH 26.8 pg (26.0-34.0); MCHC 32.2 g/dL (31.0-37.0); MCV 83.3 fL (80.0-100.0); MEAN PLATELET VOLUME 10.8 fL (7.4-10.4); MONOCYTES 10.3 % (2-11); NEUTROPHILS 36.6 % (40-80); RBC 3.95 10x6/uL (4.00-5.40); RDW 14.3 % (11.5-14.5); WBC 5.3 10x3/uL (4.8-10.8)
[2017-05-10 05:35] LABS: PLATELET COUNT 214 10x3/uL (130-400)
[2017-05-10 05:45] LABS: ALKALINE PHOSPHATASE 127 U/L (46-116); ALT (SGPT) 61 U/L (10-68); BILIRUBIN - TOTAL 0.25 mg/dL (0.2-1.3); CALC OSMOLALITY 276 mosm/kg (275-300); CALCIUM 8.6 mg/dL (8.5-10.1); CARBON DIOXIDE 28.3 mmol/L (21.0-32.0); CHLORIDE - SERUM 102 mmol/L (98-107); CREATININE - SERUM 0.7 mg/dL (0.6-1.3); GLUCOSE 125 mg/dL (74-106); POTASSIUM - SERUM 3.3 mmol/L (3.5-5.1); PROTEIN - SERUM 6.2 g/dL (6.4-8.2); SODIUM 139 mmol/L (136-145); UREA NITROGEN 8 mg/dL (7-18); eGFR NON AFRICAN AMERICAN 89 mL/min (90-120)
[2017-05-10 05:53] LABS: TROPONIN-I < 0.017 ng/mL (0.000-0.060)
[2017-05-10 06:04] LABS: APPEARANCE CLEAR (CLEAR); BILIRUBIN NEGATIVE (NEGATIVE); COLOR YELLOW (YELLOW); GLUCOSE NEGATIVE (NEGATIVE); KETONE NEGATIVE (NEGATIVE); NITRITE NEGATIVE (NEGATIVE); PROTEIN NEGATIVE (NEGATIVE); SPECIFIC GRAVITY 1.015 (1.005-1.020); UROBILINOGEN NORMAL (NORMAL)
[2017-05-10 06:14] LABS: UDS - AMPHET NEGATIVE QUAL (NEGATIVE); UDS - BARB NEGATIVE QUAL (NEGATIVE); UDS - BENZO POSITIVE QUAL (NEGATIVE); UDS - COCAINE NEGATIVE QUAL (NEGATIVE); UDS - OPIATE POSITIVE QUAL (NEGATIVE); UDS - PCP NEGATIVE QUAL (NEGATIVE); UDS - THC NEGATIVE QUAL (NEGATIVE)
[2017-05-10 06:15] LABS: AMYLASE - SERUM 24 U/L (25-115); CREATINE KINASE 27 UL (21-215); LIPASE 157 U/L (73-393); PRO BNP 227 pg/mL (0-125)
== END 2017-05-10 06:39 | disposition home or self-care (01) ==
LOC: D.ER 04:49
PROVIDERS: Family Medicine
DX: R56.9 Unspecified convulsions (principal); I10 Essential (primary) hypertension

== ENCOUNTER 2017-05-12 15:43 | Emergency (ER) | payer MEDICARE ==
[2016-11-07 03:05] VITALS: BMI 29.9
[2017-05-12 16:39] LABS: APPEARANCE CLEAR (CLEAR); BILIRUBIN NEGATIVE (NEGATIVE); COLOR YELLOW (YELLOW); GLUCOSE NEGATIVE (NEGATIVE); KETONE NEGATIVE (NEGATIVE); NITRITE NEGATIVE (NEGATIVE); PROTEIN NEGATIVE (NEGATIVE); SPECIFIC GRAVITY 1.015 (1.005-1.020); UROBILINOGEN NORMAL (NORMAL)
[2017-05-12 16:48] LABS: BASOPHILS 0.6 % (0-2); EOSINOPHILS 0 % (0-7); HEMATOCRIT 34.6 % (36.0-48.0); HEMOGLOBIN 12.1 g/dL (12-16); IMMATURE GRANULOCYTES 0.3 % (0-5); LYMPHOCYTES 40.9 % (15-50); MEAN PLATELET VOLUME 10.8 fL (7.4-10.4); MONOCYTES 9.4 % (2-11); NEUTROPHILS 48.8 % (40-80); RBC 4.17 10x6/uL (4.00-5.40); RDW 14.3 % (11.5-14.5); WBC 7.9 10x3/uL (4.8-10.8)
[2017-05-12 16:55] LABS: PLATELET COUNT 267 10x3/uL (130-400)
[2017-05-12 17:06] LABS: ALBUMIN 3.2 g/dL (3.4-5.0); ALKALINE PHOSPHATASE 190 U/L (46-116); BILIRUBIN - TOTAL 0.63 mg/dL (0.2-1.3); CALC OSMOLALITY 272 mosm/kg (275-300); CALCIUM 7.8 mg/dL (8.5-10.1); CARBON DIOXIDE 16.9 mmol/L (21.0-32.0); CHLORIDE - SERUM 98 mmol/L (98-107); GLUCOSE 163 mg/dL (74-106); POTASSIUM - SERUM 3.5 mmol/L (3.5-5.1); SODIUM 135 mmol/L (136-145); UREA NITROGEN 9 mg/dL (7-18)
[2017-05-12 17:28] LABS: CREATININE - SERUM 0.8 mg/dL (0.6-1.3); eGFR NON AFRICAN AMERICAN 76 mL/min (90-120)
[2017-05-12 18:10] LABS: ALT (SGPT) 66 U/L (10-68); PROTEIN - SERUM 6.1 g/dL (6.4-8.2)
== END 2017-05-12 19:04 | disposition home or self-care (01) ==
LOC: D.ER 15:43
PROVIDERS: Emergency Medicine
DX: G89.4 Chronic pain syndrome (principal); I10 Essential (primary) hypertension; Z91.19 Patient's noncompliance with other medical treatment and regimen; M54.5 Low back pain

== ENCOUNTER 2017-08-21 13:34 | Emergency (ER) | payer MEDICARE ==
[2016-11-07 03:05] VITALS: BMI 29.9
[2017-08-21 16:27] LABS: BASOPHILS 0.3 % (0-2); EOSINOPHILS 0 % (0-7); HEMATOCRIT 32.9 % (36.0-48.0); HEMOGLOBIN 10.8 g/dL (12-16); IMMATURE GRANULOCYTES 0.2 % (0-5); LYMPHOCYTES 44.9 % (15-50); MCH 27.3 pg (26.0-34.0); MCHC 32.8 g/dL (31.0-37.0); MCV 83.3 fL (80.0-100.0); MEAN PLATELET VOLUME 10.4 fL (7.4-10.4); MONOCYTES 7.8 % (2-11); NEUTROPHILS 46.8 % (40-80); PLATELET COUNT 277 10x3/uL (130-400); RBC 3.95 10x6/uL (4.00-5.40); WBC 10.3 10x3/uL (4.8-10.8)
[2017-08-21 16:50] LABS: ALBUMIN 3.7 g/dL (3.4-5.0); ALKALINE PHOSPHATASE 100 U/L (46-116); ALT (SGPT) 27 U/L (10-68); BILIRUBIN - TOTAL 0.16 mg/dL (0.2-1.3); CALC OSMOLALITY 273 mosm/kg (275-300); CALCIUM 9.1 mg/dL (8.5-10.1); CARBON DIOXIDE 25.4 mmol/L (21.0-32.0); CHLORIDE - SERUM 101 mmol/L (98-107); CREATININE - SERUM 0.8 mg/dL (0.6-1.3); POTASSIUM - SERUM 3.9 mmol/L (3.5-5.1); PROTEIN - SERUM 7.2 g/dL (6.4-8.2); SODIUM 137 mmol/L (136-145); UREA NITROGEN 10 mg/dL (7-18); eGFR NON AFRICAN AMERICAN 76 mL/min (90-120)
[2017-08-21 16:51] LABS: GLUCOSE 115 mg/dL (74-106)
[2017-08-21 17:53] LABS: APPEARANCE CLEAR (CLEAR); BILIRUBIN NEGATIVE (NEGATIVE); COLOR YELLOW (YELLOW); GLUCOSE NEGATIVE (NEGATIVE); KETONE NEGATIVE (NEGATIVE); NITRITE POSITIVE (NEGATIVE); PROTEIN NEGATIVE (NEGATIVE); SPECIFIC GRAVITY 1.015 (1.005-1.020); UROBILINOGEN NORMAL (NORMAL)
[2017-08-21 17:54] LABS: BACTERIA MANY /hpf (NONE SEEN); EPITHELIAL CELLS 0-5 /hpf (0-5); WHITE CELLS - URINE 0-5 /hpf (0-5)
== END 2017-08-21 18:24 | disposition home or self-care (01) ==
LOC: D.ER 13:34
PROVIDERS: Emergency Medicine
DX: R42 Dizziness and giddiness (principal); N39.0 Urinary tract infection, site not specified

== ENCOUNTER → 2017-12-30 09:01 | Outpatient (CLI) | payer MEDICARE ==
[2016-11-07 03:05] VITALS: BMI 29.9
== END | disposition home or self-care (01) ==
LOC: D.LAB 09:01
DX: R31.29 Other microscopic hematuria (principal)

== ENCOUNTER → 2018-04-24 16:25 | Outpatient (CLI) | payer MEDICARE ==
[2016-11-07 03:05] VITALS: BMI 29.9
== END | disposition home or self-care (01) ==
LOC: D.CT 16:25
DX: R10.9 Unspecified abdominal pain (principal)

== ENCOUNTER 2019-09-20 08:00 | Outpatient (CLI) | payer MEDICARE ==
[2016-11-07 03:05] VITALS: BMI 29.9
== END 2019-09-20 23:59 | disposition home or self-care (01) ==
LOC: D.MAMMO 08:00
PROVIDERS: ATTEND Family Medicine
DX: Z12.31 Encounter for screening mammogram for malignant neoplasm of breast (principal)

== ENCOUNTER 2020-01-21 08:00 | Outpatient (CLI) | payer MEDICARE ==
[2016-11-07 03:05] VITALS: BMI 29.9
== END 2020-01-21 08:01 | disposition home or self-care (01) ==
LOC: D.MAMMO 08:00
PROVIDERS: ATTEND Family Medicine
DX: R92.8 Other abnormal and inconclusive findings on diagnostic imaging of breast (principal)

== ENCOUNTER → 2020-02-02 08:28 | Outpatient (CLI) | payer MEDICARE ==
[2016-11-07 03:05] VITALS: BMI 29.9
[2020-02-02 09:05] LABS: ALBUMIN 3.7 g/dL (3.4-5.0); BILIRUBIN - DIRECT 0.07 mg/dL (0.00-0.30); BILIRUBIN - INDIRECT 0.24 mg/dL (0.00-1.00); BILIRUBIN - TOTAL 0.31 mg/dL (0.2-1.3)
== END | disposition home or self-care (01) ==
LOC: D.LAB 08:15 → D.US 08:30
PROVIDERS: ATTEND Internal Medicine Gastroenterology
DX: K76.0 Fatty (change of) liver, not elsewhere classified (principal)

== ENCOUNTER 2020-03-13 08:50 | Day surgery (SDC) | payer MEDICARE ==
[~2020-03-13] VITALS: Ht 157.5 cm; Wt 72.7 kg
[~2020-03-13 08:50] MED LIST changes: +CBD OIL PO; +COZAAR100 MG PO; +GLUCOPHAGE500 MG PO; +NUCYNTA50 MG PO
[2020-03-13 09:02] LABS: HEMATOCRIT 37.6 % (36.0-48.0); MCH 28.4 pg (26.0-34.0); MCHC 34.6 g/dL (31.0-37.0); MCV 82.1 fL (80.0-100.0); MEAN PLATELET VOLUME 9.3 fL (7.4-10.4); RBC 4.58 10x6/uL (4.00-5.40); RDW 12.6 % (11.5-14.5); WBC 7.3 10x3/uL (4.8-10.8)
[2020-03-13 09:04] LABS: ANION GAP 9.3 mmol/L (8-16); CALCIUM 9.2 mg/dL (8.5-10.1); CARBON DIOXIDE 31.2 mmol/L (21.0-32.0); CREATININE - SERUM 0.9 mg/dL (0.6-1.3); POTASSIUM - SERUM 3.5 mmol/L (3.5-5.1)
[2020-03-13] MEDS ORDERED: MICARDIS80 MG PO (09:09)
[2020-03-13] MEDS ORDERED: HYDROCODON-ACE1 EAC7 PO (09:10)
[2020-03-13 09:12] VITALS: Ht 157.5 cm; Wt 72.7 kg
--- NOTE | 2020-03-15 16:54 | OP ---
PATIENT NAME: MEHRAN LAMAR MEDICAL RECORD: [id number] :54 LOCATION:[facility] ADMISSION DATE: SURGEON: ARNALDO WORTHINGTON DO DATE OF OPERATION: 03/13/2020 PROCEDURE: EGD with dilation and biopsies. INDICATIONS FOR PROCEDURE: Heartburn, epigastric pain, nausea and vomiting. SCOPE: Olympus video gastroscope. MEDICATIONS: Propofol 320 mg IV per anesthesia. ESTIMATED BLOOD LOSS: Minimal. COMPLICATIONS: None. FINDINGS: Informed consent was given. The patient was made comfortable with the above medication. After reaching an adequate level of sedation by slow IV push, the patient was placed on her left side. The endoscope was advanced under direct visualization through the mouth to the second portion of the duodenum. The esophagus appeared normal down to the GE junction. Cold forceps, biopsies were taken from the mid esophagus to rule out the presence of eosinophils. At the GE junction, there was evidence of LA class A reflux-induced esophagitis and a small nonobstructing Schatzki's ring. A CRE dilating balloon was used through the scope to dilate the ring up to 18 mm maximum diameter successfully. The endoscope was advanced beyond the GE junction into the stomach and retroflexed to view the cardia, where a small sliding hiatal hernia was present. There were no associated ulcerations or other abnormalities associated with this hernia. Throughout the stomach, there were patchy areas of erythema, granularity, and congestion consistent with mild chronic gastritis. Cold forceps, biopsies were taken from the antrum and incisura to submit for histopathology and to rule out the presence of H. pylori. The endoscope was advanced beyond the pylorus into the duodenum. The duodenal bulb appeared normal. In the junction from the first to second portion of the duodenum, there was some narrowing and stricturing. A CRE dilating balloon was used to dilate the site up to 15 mm maximum diameter successfully. The endoscope was advanced beyond the stricture site into the second portion of the duodenum where a large periampullary diverticulum was present. There were no abnormalities associated with the diverticulum. The endoscope was then withdrawn back to the site where the stricture was located and cold forceps biopsies were taken to submit for histopathology. The endoscope was withdrawn from the patient. The patient tolerated the procedure well and there were no complications. IMPRESSION: 1. LA class A reflux-induced esophagitis. 2. Small nonobstructing Schatzki ring, status post dilation to 18 mm. 3. Small sliding hiatal hernia. 4. Mild chronic gastritis changes. 5. Duodenal stricture at the junction of the first to second portion of the duodenum. This was dilated using a CRE balloon. 6. 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 PLAN AND RECOMMENDATIONS: 1. Discharge home when recovery parameters are met. OPERATIVE REPORT [id number] MEHRAN LAMAR 2. Follow up biopsy specimen results. 3. GERD diet and reflux precautions. 4. Continue current medications. 5. Gastric emptying scan regarding symptoms of gastroparesis. 6. Follow up in GI clinic in 4-6 weeks. TRANSINT:[id number] Voice Confirmation ID: [id number] DOCUMENT ID: [id number] ARNALDO WORTHINGTON DO at 1654 CC: [id number] DICTATION DATE: 03/13/20 1037 [employer]: 03/13/202110 [facility] 03/13/20 [id number] [place] [address]
== END 2020-03-13 11:30 | disposition home or self-care (01) ==
LOC: D.OPS 08:50
PROVIDERS: Anesthesiology; ATTEND Internal Medicine Gastroenterology
DX: R10.13 Epigastric pain (principal); R11.2 Nausea with vomiting, unspecified; K22.2 Esophageal obstruction; K21.0 Gastro-esophageal reflux disease with esophagitis; K44.9 Diaphragmatic hernia without obstruction or gangrene; K29.50 Unspecified chronic gastritis without bleeding; K31.5 Obstruction of duodenum; K57.10 Diverticulosis of small intestine without perforation or abscess without bleeding; J45.909 Unspecified asthma, uncomplicated; I50.9 Heart failure, unspecified; E11.9 Type 2 diabetes mellitus without complications; I10 Essential (primary) hypertension; Z86.010 Personal history of colon polyps

== ENCOUNTER 2020-03-20 08:12 | Day surgery (SDC) | payer MEDICARE ==
[~2020-03-20] VITALS: Ht 157.5 cm; Wt 68.2 kg
[~2020-03-20 08:12] MED LIST changes: +MICARDIS80 MG PO
[2020-03-20 08:55] LABS: BASOPHILS 0.7 % (0-2); EOSINOPHILS 0 % (0-7); HEMOGLOBIN 12.9 g/dL (12-16); IMMATURE GRANULOCYTES 0.3 % (0-5); LYMPHOCYTES 26.3 % (15-50); MCH 28.2 pg (26.0-34.0); MCHC 33.9 g/dL (31.0-37.0); MCV 83.2 fL (80.0-100.0); MEAN PLATELET VOLUME 9.1 fL (7.4-10.4); MONOCYTES 9.1 % (2-11); NEUTROPHILS 63.6 % (40-80); PLATELET COUNT 339 10x3/uL (130-400); RBC 4.57 10x6/uL (4.00-5.40); RDW 12.8 % (11.5-14.5); WBC 6.8 10x3/uL (4.8-10.8)
[2020-03-20 09:19] VITALS: BP 170/62; Ht 157.5 cm; Wt 68.2 kg
[2020-03-20 09:26] LABS: CALC OSMOLALITY 258 mosm/kg (275-300); CALCIUM 9.1 mg/dL (8.5-10.1); CARBON DIOXIDE 29.4 mmol/L (21.0-32.0); CHLORIDE - SERUM 94 mmol/L (98-107); CREATININE - SERUM 0.6 mg/dL (0.6-1.3); GLUCOSE 110 mg/dL (74-106); POTASSIUM - SERUM 3.2 mmol/L (3.5-5.1); SODIUM 130 mmol/L (136-145); UREA NITROGEN 5 mg/dL (7-18); eGFR NON AFRICAN AMERICAN > 90 mL/min (90-120)
--- NOTE | 2020-03-20 10:45 | NUR ---
[id number]: PT WITH GENERALIZED MUSCLE SPASMS. STATES THIS HAPPENS FREQUENTLY ALONG WITH HEADACHE. STATES PRIMARY CARE PHYSICIAN "KNOWS WHAT TO GIVE ME".
--- NOTE | 2020-03-20 11:05 | NUR ---
1047 DR. WORTHINGTON NOTIFIED OF ELEVATED BP. DR. ORTIZ NOTIFIED ORDERS RECEIVED. 1100 10 APRESSOLINE GIVEN.
--- NOTE | 2020-03-20 12:04 | NUR ---
1200 STATES MEDICINE HAS HELPED HER PAIN BUT STILL FEELS LIKE SHES' SHAKING INSIDE. STATES SHE IS NOT READY TO GET OUT OF BED OF YET. HAS TAKEN SIPS OF TEA WITHOUT EMESIS. STATES NAUSEA IS A BIT BETTER.
--- NOTE | 2020-03-20 12:42 | NUR ---
0910 I GAVE PT HER PHONE TO CALL/ TEXT HER CAREGIVER TO SEE WHEN SHE COULD COME PICK HER UP. PT. REPORTS BACK/HEAD/NECK FEELING MUCH BETTER
--- NOTE | 2020-03-21 14:37 | OP ---
PATIENT NAME: MEHRAN LAMAR MEDICAL RECORD: [id number] :54 LOCATION:[facility] ADMISSION DATE: SURGEON: ARNALDO WORTHINGTON DO DATE OF OPERATION: 03/20/2020 PROCEDURE: Colonoscopy with polypectomy. INDICATIONS FOR PROCEDURE: History of colon polyps. SCOPE: Olympus video pediatric colonoscope. MEDICATIONS: Propofol 600 mg IV per anesthesia. WITHDRAWAL TIME: 13 minutes. ESTIMATED BLOOD LOSS: Minimal. COMPLICATIONS: None. FINDINGS: Informed consent was given. The patient was made comfortable with the above medication. After reaching an adequate level of sedation by slow IV push, the patient was placed on her left side. A digital rectal examination was performed and revealed some hemorrhoids. The endoscope was then advanced under direct visualization through the rectum to the cecum and terminal ileum. The endoscope was slowly withdrawn and mucosa was carefully examined. The prep quality was good. There was 1 polyp visualized on today's examination. It was located in the descending colon. It was benign appearing and sessile and removed using a hot snare. The size measured approximately 4-5 mm in diameter. There was evidence of mild diverticulosis scattered throughout the entire colon. Retroflexion was performed in the rectum with visualization of grade I internal hemorrhoids without bleeding. The endoscope was withdrawn from the patient. The patient tolerated the procedure well and there were no complications. IMPRESSION: 1. A single benign-appearing sessile polyp was removed from the descending colon. 2. Mild diverticulosis of the entire colon. 3. Grade I hemorrhoids without bleeding. PLAN AND RECOMMENDATIONS: 1. Discharge home when recovery parameters are met. 2. Follow up biopsy specimen results. 3. High fiber diet. 4. Continue current medications. 5. Linzess 72 mcg daily regarding the chronic constipation. 6. Follow up in GI clinic as scheduled. TRANSINT:[id number] Voice Confirmation ID: [id number] DOCUMENT ID: [id number] OPERATIVE REPORT [id number] MEHRAN LAMAR ARNALDO WORTHINGTON DO at 1437 CC: [id number] DICTATION DATE: 03/20/20 1020 C[employer]OMER [employer]ICAL SERVICES MANAGER: 03/20/20 2134 [facility] 03/20/20 [id number] [place] [address]
== END 2020-03-20 14:00 | disposition home or self-care (01) ==
LOC: D.OPS 08:12
PROVIDERS: Anesthesiology; ATTEND Internal Medicine Gastroenterology
DX: K63.5 Polyp of colon (principal); K57.30 Diverticulosis of large intestine without perforation or abscess without bleeding; Z86.010 Personal history of colon polyps; K64.0 First degree hemorrhoids; K76.0 Fatty (change of) liver, not elsewhere classified; R10.13 Epigastric pain; R12 Heartburn; R11.2 Nausea with vomiting, unspecified

== ENCOUNTER → 2020-11-02 13:34 | Outpatient (CLI) | payer OTHER ==
[2020-03-20 09:19] VITALS: BMI 27.5
== END | disposition home or self-care (01) ==
LOC: D.US 13:00
PROVIDERS: ATTEND Family Medicine
DX: E04.9 Nontoxic goiter, unspecified (principal)

== ENCOUNTER 2020-11-21 10:19 | Inpatient (IN) | payer OTHER ==
[~2020-11-21] VITALS: Ht 157.5 cm; Wt 71.2 kg
[2020-11-21] VITALS (10 sets, daily range): BP systolic 115–147; BP diastolic 53–63; BMI 27.4
[2020-11-21] MEDS ORDERED: NORVASC5 MG PO (10:27)
[2020-11-21 10:43] LABS: BASOPHILS 0.1 % (0-2); EOSINOPHILS 0 % (0-7); HEMATOCRIT 34.8 % (36.0-48.0); HEMOGLOBIN 12.5 g/dL (12-16); IMMATURE GRANULOCYTES 0.2 % (0-5); LYMPHOCYTE ABS# 1.57 10x3/uL (1.18-3.74); LYMPHOCYTES 18.3 % (15-50); MCH 28.7 pg (26.0-34.0); MCHC 35.9 g/dL (31.0-37.0); MEAN PLATELET VOLUME 9.7 fL (7.4-10.4); MONOCYTES 10.7 % (2-11); NEUTROPHIL ABS# 6.04 10x3/uL (1.56-6.13); NEUTROPHILS 70.7 % (40-80); PLATELET COUNT 292 10x3/uL (130-400); RBC 4.35 10x6/uL (4.00-5.40); RDW 12.2 % (11.5-14.5); WBC 8.6 10x3/uL (4.8-10.8)
[2020-11-21 11:45] LABS: ALBUMIN 4.2 g/dL (3.4-5.0); ALKALINE PHOSPHATASE 80 U/L (30-120); ALT (SGPT) 66 U/L (10-68); AMYLASE - SERUM 51 U/L (25-115); BILIRUBIN - TOTAL 0.95 mg/dL (0.2-1.3); CALC OSMOLALITY 241 mosm/kg (275-300); CALCIUM 9.3 mg/dL (8.5-10.1); CARBON DIOXIDE 37.2 mmol/L (21.0-32.0); CREATININE - SERUM 0.8 mg/dL (0.6-1.3); GLUCOSE 164 mg/dL (74-106); LIPASE 310 U/L (73-393); PROTEIN - SERUM 7.3 g/dL (6.4-8.2); TROPONIN-I < 0.017 ng/mL (0.000-0.060); UREA NITROGEN 13 mg/dL (7-18); eGFR NON AFRICAN AMERICAN 75 mL/min (90-120)
[2020-11-21 11:47] LABS: CHLORIDE - SERUM 75 mmol/L (98-107); POTASSIUM - SERUM 2.1 mmol/L (3.5-5.1); SODIUM 118 mmol/L (136-145)
--- NOTE | 2020-11-21 11:50 | NUR ---
CRITICAL LABS REPORTED TO DR. PUTNAM
--- NOTE | 2020-11-21 11:57 | NUR ---
LEFT FOR CT
--- NOTE | 2020-11-21 12:10 | NUR ---
RETURNED FROM CT
[2020-11-21] MEDS ORDERED: PHENERGAN25 M1 PO (15:46)
[2020-11-21] MEDS ORDERED: METOLAZONE2.5 MG PO (15:48)
[2020-11-21] MEDS ORDERED: FUROSEMIDE40 MG PO (15:48)
[2020-11-21 15:56] LABS: BILIRUBIN NEGATIVE (NEGATIVE); KETONE NEGATIVE (NEGATIVE); NITRITE NEGATIVE (NEGATIVE); UROBILINOGEN NORMAL mg/dL (< 2)
[2020-11-21 15:57] LABS: SQUAMOUS EPITHELIAL 0-5 HPF (0-4); WHITE CELLS - URINE 0-5 HPF (0-4)
[2020-11-21 15:58] LABS: BACTERIA MODERATE HPF (NONE SEEN)
[2020-11-21 17:38] LABS: CALCIUM 8.5 mg/dL (8.5-10.1); CARBON DIOXIDE 34.9 mmol/L (21.0-32.0); SODIUM 121 mmol/L (136-145); UREA NITROGEN 13 mg/dL (7-18)
[2020-11-21 17:45] LABS: CALC OSMOLALITY 243 mosm/kg (275-300); CREATININE - SERUM 0.5 mg/dL (0.6-1.3); GLUCOSE 102 mg/dL (74-106); eGFR NON AFRICAN AMERICAN > 90 mL/min (90-120)
[2020-11-21 17:46] LABS: POTASSIUM - SERUM 2.4 mmol/L (3.5-5.1)
[2020-11-21 17:47] LABS: CHLORIDE - SERUM 80 mmol/L (98-107)
[2020-11-21 23:27] LABS: CALC OSMOLALITY 245 mosm/kg (275-300); CALCIUM 8.1 mg/dL (8.5-10.1); CARBON DIOXIDE 35.9 mmol/L (21.0-32.0); GLUCOSE 129 mg/dL (74-106); SODIUM 121 mmol/L (136-145); UREA NITROGEN 13 mg/dL (7-18)
[2020-11-21 23:28] LABS: CREATININE - SERUM 0.7 mg/dL (0.6-1.3); eGFR NON AFRICAN AMERICAN 88 mL/min (90-120)
[2020-11-21 23:29] LABS: CHLORIDE - SERUM 83 mmol/L (98-107); POTASSIUM - SERUM 2.5 mmol/L (3.5-5.1)
[2020-11-22] VITALS (15 sets, daily range): BP systolic 93–145; BP diastolic 42–140
[2020-11-22 05:10] LABS: BASOPHILS 0.3 % (0-2); EOSINOPHILS 0 % (0-7); HEMATOCRIT 30.7 % (36.0-48.0); HEMOGLOBIN 10.8 g/dL (12-16); IMMATURE GRANULOCYTES 0.3 % (0-5); LYMPHOCYTE ABS# 2.13 10x3/uL (1.18-3.74); LYMPHOCYTES 27.2 % (15-50); MCH 28.6 pg (26.0-34.0); MCHC 35.2 g/dL (31.0-37.0); MCV 81.4 fL (80.0-100.0); MEAN PLATELET VOLUME 10.5 fL (7.4-10.4); MONOCYTES 11.8 % (2-11); NEUTROPHIL ABS# 4.73 10x3/uL (1.56-6.13); NEUTROPHILS 60.4 % (40-80); PLATELET COUNT 281 10x3/uL (130-400); RBC 3.77 10x6/uL (4.00-5.40); RDW 12.5 % (11.5-14.5); WBC 7.8 10x3/uL (4.8-10.8)
[2020-11-22 05:44] LABS: ALBUMIN 3.4 g/dL (3.4-5.0); ALKALINE PHOSPHATASE 67 U/L (30-120); ALT (SGPT) 52 U/L (10-68); BILIRUBIN - TOTAL 0.48 mg/dL (0.2-1.3); CALC OSMOLALITY 249 mosm/kg (275-300); CALCIUM 8.3 mg/dL (8.5-10.1); CARBON DIOXIDE 34.4 mmol/L (21.0-32.0); CHLORIDE - SERUM 86 mmol/L (98-107); CREATININE - SERUM 0.6 mg/dL (0.6-1.3); GLUCOSE 111 mg/dL (74-106); MAGNESIUM - SERUM 1.7 mg/dL (1.8-2.4); PHOSPHOROUS 3.7 mg/dL (2.5-4.9); PROTEIN - SERUM 6.4 g/dL (6.4-8.2); SODIUM 124 mmol/L (136-145); THYROID STIMULATING HORMONE 4.41 uIU/mL (0.36-3.74); TRIGLYCERIDE 180 mg/dL (30-200); UREA NITROGEN 11 mg/dL (7-18); eGFR NON AFRICAN AMERICAN > 90 mL/min (90-120)
[2020-11-22 05:45] LABS: POTASSIUM - SERUM 2.9 mmol/L (3.5-5.1)
[2020-11-22 08:56] LABS: CREATININE - URINE 5.4 mg/dL (30-125); POTASSIUM - URINE 11.9 MMOL/L (12.0-62.0); PRO/CRE RATIO URINE 0.4 mg/g; PROTEIN - URINE 2.3 mg/dL (0.0-11.9)
[2020-11-22 12:58] LABS: CALC OSMOLALITY 256 mosm/kg (275-300); CALCIUM 9.2 mg/dL (8.5-10.1); CARBON DIOXIDE 30.2 mmol/L (21.0-32.0); CHLORIDE - SERUM 90 mmol/L (98-107); CREATININE - SERUM 0.6 mg/dL (0.6-1.3); GLUCOSE 120 mg/dL (74-106); POTASSIUM - SERUM 4.1 mmol/L (3.5-5.1); SODIUM 128 mmol/L (136-145); UREA NITROGEN 9 mg/dL (7-18); eGFR NON AFRICAN AMERICAN > 90 mL/min (90-120)
--- NOTE | 2020-11-22 15:45 | NUR ---
PT RECIEVED FROM ICU NURSE. BREATHING EASILY. NO DISTRESS NOTED. COMPLAINS OF PAIN. PAIN MEDS WILL BE ADMINIISTERED WHEN DUE. PARTICIPATES IN CONVERSATION WITH NURSE APPROPRIATELY. WALKED TO CHAIR FROM WHEELCHAIR. TOILETED INDEPENDENTLY.
[2020-11-22 19:30] LABS: CALC OSMOLALITY 257 mosm/kg (275-300); CALCIUM 9.2 mg/dL (8.5-10.1); CARBON DIOXIDE 30.8 mmol/L (21.0-32.0); CHLORIDE - SERUM 91 mmol/L (98-107); GLUCOSE 139 mg/dL (74-106); SODIUM 128 mmol/L (136-145); UREA NITROGEN 11 mg/dL (7-18)
[2020-11-22 19:31] LABS: CREATININE - SERUM 0.8 mg/dL (0.6-1.3); POTASSIUM - SERUM 3.4 mmol/L (3.5-5.1); eGFR NON AFRICAN AMERICAN 75 mL/min (90-120)
--- NOTE | 2020-11-22 20:00 | NUR ---
REPORT RECEIVED, PT A&O, UP IN BED COMPLAINING OF ABDOMINAL PAIN. PT IS CLEARLY UPSET AND CONFUSED. ANSWERED PTS QUESTIONS. DISCUSSED POC. TALKED WITH SAMARA REHMAN APN ABOUT PTS CONCERNS WITH K/NA IMBALANCES. CALENDER SUPERVISOR PUT IN NEW ORDERS TO INCLUDE: DIABETIC DIET, NO IV FLUIDS, NO FREE WATER, & TELEMETRY. ADMINISTERED PROTONIX IV EARLY TO AID IN ABDOM PAIN, PAIN MED NOT DUE FOR ANOTHER HOUR. PT IS AT EASE HAVING NEW ORDERS AND NEW INFO FROM CALENDER SUPERVISOR. NO S/S OF DISTRESS AT THIS TIME. RR EVEN & UNLABORED ON RA. BED LOCKED AND LOWERED, CL IN REACH. ASSESSMENT COMPLETE. WILL CONT POC.
[2020-11-23 05:09] VITALS: BP 129/50
--- NOTE | 2020-11-23 07:40 | NUR ---
CONSENTS SIGNED FOR CT BIOPSY. WILL CONT. PLAN OF CARE.
[2020-11-23 07:49] LABS: ALBUMIN 3.3 g/dL (3.4-5.0); ALKALINE PHOSPHATASE 79 U/L (30-120); ALT (SGPT) 49 U/L (10-68); BILIRUBIN - TOTAL 0.39 mg/dL (0.2-1.3); CALC OSMOLALITY 258 mosm/kg (275-300); CALCIUM 8.8 mg/dL (8.5-10.1); CARBON DIOXIDE 28.2 mmol/L (21.0-32.0); CHLORIDE - SERUM 92 mmol/L (98-107); CREATININE - SERUM 0.6 mg/dL (0.6-1.3); GLUCOSE 123 mg/dL (74-106); MAGNESIUM - SERUM 1.8 mg/dL (1.8-2.4); PHOSPHOROUS 3.4 mg/dL (2.5-4.9); POTASSIUM - SERUM 3.4 mmol/L (3.5-5.1); PROTEIN - SERUM 6.7 g/dL (6.4-8.2); SODIUM 129 mmol/L (136-145); T4 THYROXIN - FREE 1.29 ng/dL (0.76-1.46); THYROID STIMULATING HORMONE 2.49 uIU/mL (0.36-3.74); UREA NITROGEN 10 mg/dL (7-18); eGFR NON AFRICAN AMERICAN > 90 mL/min (90-120)
[2020-11-23 08:15] LABS: BASOPHILS 0.6 % (0-2); EOSINOPHILS 0 % (0-7); HEMATOCRIT 31.8 % (36.0-48.0); HEMOGLOBIN 10.8 g/dL (12-16); IMMATURE GRANULOCYTES 0.3 % (0-5); LYMPHOCYTE ABS# 2.11 10x3/uL (1.18-3.74); LYMPHOCYTES 30.4 % (15-50); MCH 28.5 pg (26.0-34.0); MEAN PLATELET VOLUME 10.4 fL (7.4-10.4); MONOCYTES 11.1 % (2-11); NEUTROPHIL ABS# 4.01 10x3/uL (1.56-6.13); NEUTROPHILS 57.6 % (40-80); PLATELET COUNT 289 10x3/uL (130-400); RBC 3.79 10x6/uL (4.00-5.40); RDW 12.8 % (11.5-14.5)
[2020-11-23 08:17] LABS: MCV 83.9 fL (80.0-100.0)
[2020-11-23 08:59] VITALS: BP 142/48
[2020-11-23 09:30] LABS: APTT 26.9 SECONDS (22.8-39.4)
[2020-11-23 10:42] LABS: INR 1.07 (0.85-1.17); PROTIME 12.8 SECONDS (11.6-15.0)
[2020-11-23 11:07] VITALS: BP 118/54
--- NOTE | 2020-11-23 14:10 | NUR ---
LEAVING TO IR BY BED. WILL MONITOR.
--- NOTE | 2020-11-23 15:39 | NUR ---
BACK FROM CT. RIGHT ABD DRSG CDI. GO LYTELY PREP STARTED.
--- NOTE | 2020-11-23 19:00 | NUR ---
REPORT GIVEN BY DUC ESPINO
[2020-11-23 20:00] VITALS: BP 136/55
--- NOTE | 2020-11-23 21:00 | NUR ---
ASSESSMENT COMPLETED. PT HAS NO C/O OR NEEDS AT THIS TIME.
--- NOTE | 2020-11-23 21:20 | NUR ---
BS WAS 117. PT DID NOT NEED ANY INSULIN.
--- NOTE | 2020-11-24 00:54 | NUR ---
PT REQUESTED MORPHINE 4 MG IV. I VOICED SOME CONCERN TO HER ABOUT GETTING THIS AND BEING UP AND DOWN TO THE BR. SHE ASSURED ME THAT SHE WOULD NOT FALL. WHEN I GOT TO HER ROOM WITH THE MEDICATION SHE WAS ASLEEP. I DID NOT WAKE HER UP FOR IV PAIN MED.
--- NOTE | 2020-11-24 01:15 | NUR ---
CHECKED IN AGAIN WITH PT. SHE IS STILL ASLEEP. ONCE AGAIN I DID NOT WAKE HER. I LET THE CHARGE NURSE KNOW THAT I HAD THE MORPHINE WITH ME AT THE DESK.
--- NOTE | 2020-11-24 03:33 | NUR ---
PT IS NOW AWAKE AND WANTING HER PAIN MED. WHEN I GOT TO HER ROOM SHE WAS MOST UNHAPPY THAT SHE STILL WAS GOING TO THE BR. SHE STATED SHE IS ONLY PASSING ACID NOW AND HER BOTTOM IS RAW FROM IT AND SHE WANTS SOMETHING NOW TO PUT ON IT. SHE GOT HER MORPHINE 4 MG IV. I TOOK HER SOME FELIPA'S BUTT PASTE. I AFFERED TO APPLY IT FOR HER BUT SHE WANTS TO DO IT HERSELF. I LEFT THE ENTIRE TUBE IN HER ROOM.
[2020-11-24 04:00] VITALS: BP 162/56
--- NOTE | 2020-11-24 04:00 | NUR ---
PT ASKED IF SHE COULD HAVE SOMETHING TO DRINK. IT WAS EXPLAINED THAT SHE WAS TO HAVE NOTHING BY MOUTH AT THIS TIME
[2020-11-24 06:09] LABS: ALBUMIN 3.4 g/dL (3.4-5.0); ALKALINE PHOSPHATASE 67 U/L (30-120); ALT (SGPT) 49 U/L (10-68); BILIRUBIN - TOTAL 0.36 mg/dL (0.2-1.3); CALC OSMOLALITY 269 mosm/kg (275-300); CALCIUM 8.7 mg/dL (8.5-10.1); CARBON DIOXIDE 26.7 mmol/L (21.0-32.0); CHLORIDE - SERUM 99 mmol/L (98-107); CREATININE - SERUM 0.5 mg/dL (0.6-1.3); GLUCOSE 116 mg/dL (74-106); MAGNESIUM - SERUM 1.5 mg/dL (1.8-2.4); POTASSIUM - SERUM 3.4 mmol/L (3.5-5.1); PROTEIN - SERUM 6.6 g/dL (6.4-8.2); SODIUM 136 mmol/L (136-145); eGFR NON AFRICAN AMERICAN > 90 mL/min (90-120)
[2020-11-24 06:15] LABS: HEMATOCRIT 31.3 % (36.0-48.0); HEMOGLOBIN 10.9 g/dL (12-16); LYMPHOCYTE ABS# 1.68 10x3/uL (1.18-3.74); MCH 29.1 pg (26.0-34.0); MCHC 34.8 g/dL (31.0-37.0); MCV 83.5 fL (80.0-100.0); MEAN PLATELET VOLUME 10.5 fL (7.4-10.4); NEUTROPHIL ABS# 3.97 10x3/uL (1.56-6.13); PHOSPHOROUS 1.9 mg/dL (2.5-4.9); PLATELET COUNT 298 10x3/uL (130-400); RBC 3.75 10x6/uL (4.00-5.40); RDW 12.8 % (11.5-14.5); UREA NITROGEN 5 mg/dL (7-18); WBC 6.4 10x3/uL (4.8-10.8)
[2020-11-24 06:52] LABS: LYMPHOCYTES 18 % (15-50); NEUTROPHILS 81 % (40-80); PLATELET ESTIMATE NORMAL
[2020-11-24 08:18] VITALS: BP 129/56
--- NOTE | 2020-11-24 12:08 | NUR ---
5705 GI LAB STAFF PRESENT TO TAKE PATIENT FOR EGD AND CONONOSCOPY
--- NOTE | 2020-11-24 12:09 | NUR ---
0810 RETURNED FROM GI LAB ALERT AND AWAKE INITIATED FREQUENT VITAL SIGNS
[2020-11-24 12:43] VITALS: Ht 157.5 cm; Wt 71.2 kg
[2020-11-24 12:46] VITALS: BP 200/91
[2020-11-24 15:36] LABS: CALC OSMOLALITY 270 mosm/kg (275-300); CALCIUM 8.6 mg/dL (8.5-10.1); CARBON DIOXIDE 25.5 mmol/L (21.0-32.0); CHLORIDE - SERUM 98 mmol/L (98-107); CREATININE - SERUM 0.5 mg/dL (0.6-1.3); GLUCOSE 145 mg/dL (74-106); MAGNESIUM - SERUM 1.5 mg/dL (1.8-2.4); POTASSIUM - SERUM 3.8 mmol/L (3.5-5.1); SODIUM 135 mmol/L (136-145); eGFR NON AFRICAN AMERICAN > 90 mL/min (90-120)
[2020-11-24 15:42] LABS: PHOSPHOROUS 4.4 mg/dL (2.5-4.9)
[2020-11-24 15:43] LABS: UREA NITROGEN 8 mg/dL (7-18)
[2020-11-24 17:43] VITALS: BP 142/51
[2020-11-24 20:24] VITALS: BP 131/65
[2020-11-25 00:54] VITALS: BP 151/64
[2020-11-25 05:25] VITALS: BP 136/66
[2020-11-25 06:16] LABS: BASOPHILS 0.4 % (0-2); EOSINOPHILS 0 % (0-7); HEMATOCRIT 30.8 % (36.0-48.0); HEMOGLOBIN 10.3 g/dL (12-16); IMMATURE GRANULOCYTES 0.3 % (0-5); LYMPHOCYTE ABS# 1.93 10x3/uL (1.18-3.74); LYMPHOCYTES 24.4 % (15-50); MCH 28.1 pg (26.0-34.0); MCHC 33.4 g/dL (31.0-37.0); MCV 84.2 fL (80.0-100.0); MEAN PLATELET VOLUME 9.6 fL (7.4-10.4); MONOCYTES 7.7 % (2-11); NEUTROPHIL ABS# 5.31 10x3/uL (1.56-6.13); NEUTROPHILS 67.2 % (40-80); PLATELET COUNT 293 10x3/uL (130-400); RBC 3.66 10x6/uL (4.00-5.40); RDW 12.9 % (11.5-14.5); WBC 7.9 10x3/uL (4.8-10.8)
[2020-11-25 06:44] LABS: ALBUMIN 3.3 g/dL (3.4-5.0); ALKALINE PHOSPHATASE 76 U/L (30-120); ALT (SGPT) 40 U/L (10-68); BILIRUBIN - TOTAL 0.22 mg/dL (0.2-1.3); CALC OSMOLALITY 266 mosm/kg (275-300); CALCIUM 9.1 mg/dL (8.5-10.1); CARBON DIOXIDE 24.8 mmol/L (21.0-32.0); CHLORIDE - SERUM 99 mmol/L (98-107); CREATININE - SERUM 0.4 mg/dL (0.6-1.3); GLUCOSE 121 mg/dL (74-106); MAGNESIUM - SERUM 1.6 mg/dL (1.8-2.4); PHOSPHOROUS 3.9 mg/dL (2.5-4.9); POTASSIUM - SERUM 3.9 mmol/L (3.5-5.1); PROTEIN - SERUM 6.5 g/dL (6.4-8.2); SODIUM 134 mmol/L (136-145); UREA NITROGEN 6 mg/dL (7-18); eGFR NON AFRICAN AMERICAN > 90 mL/min (90-120)
--- NOTE | 2020-11-25 07:10 | NUR ---
REC'D N BED WITH EYES CLOSED EASILY TO AROUSED WHEN NAME IS CALLED. RESP EVEN AND UNLABORED WITH NO DISTRESS NOTED. CAN EXPRESS NEEDS AND WANTS. NO C/O NOTED OR VOICED. ASSESSMENT COMPLETED. C/L IN REACH AT BEDSIDE.
[2020-11-25 08:14] VITALS: BP 138/55
--- NOTE | 2020-11-25 09:27 | NUR ---
WAS MEDICATED WITH MORPHINE PER ORDER FOR C/O GENERALIZED PAIN RATING 10/10. N FACIAL GRIMACES, MOANING OR CRYING NOTED. C/L IN REACH AT BEDSIDE.
--- NOTE | 2020-11-25 11:48 | NUR ---
I have reviewed this patient and I concur with the Shift Assessment completed by the Licensed Practical Nurse today this shift.
[2020-11-25 12:24] VITALS: BP 104/63
[2020-11-25 17:26] VITALS: BP 147/59
[2020-11-25 21:03] VITALS: BP 159/56
--- NOTE | 2020-11-25 21:45 | NUR ---
PT C/O PAIN AT PIV SITE TO LT FA UPON ADMINISTRATION OF IVP MEDS. DC'D WITH TIP INTACT NO S/S OF BLEEDING. NEW PIV TO RT FA, 22G, X1 ATTEMPT, TOLERATED WELL. PM MEDS ADMINISTERED WITHOUT ISSUE. C/O GENERALIZED PAIN OF 10, ON A SCALE OF 0-10, AND NAUSEA, PRN MORPHINE AND ZOFRAN ADMINISTERED, PER ORDERS.
[2020-11-26 00:51] VITALS: BP 145/60
--- NOTE | 2020-11-26 01:00 | NUR ---
BEGAN 24 HOUR URINE COLLECTION. PT EDUCATED ON SAMPLE AND PROCESS, VERBALIZED UNDERSTANDING. SIGN PLACED ON DOOR.
[2020-11-26 05:22] VITALS: BP 128/71
[2020-11-26 06:22] LABS: BASOPHILS 0.6 % (0-2); EOSINOPHILS 0 % (0-7); HEMATOCRIT 29.7 % (36.0-48.0); HEMOGLOBIN 9.8 g/dL (12-16); IMMATURE GRANULOCYTES 0.3 % (0-5); LYMPHOCYTE ABS# 2.13 10x3/uL (1.18-3.74); LYMPHOCYTES 33.8 % (15-50); MCV 84.9 fL (80.0-100.0); MEAN PLATELET VOLUME 9.8 fL (7.4-10.4); MONOCYTES 9.7 % (2-11); NEUTROPHILS 55.6 % (40-80); PLATELET COUNT 285 10x3/uL (130-400); WBC 6.3 10x3/uL (4.8-10.8)
[2020-11-26 07:10] LABS: ALBUMIN 3.3 g/dL (3.4-5.0); ALKALINE PHOSPHATASE 75 U/L (30-120); ALT (SGPT) 34 U/L (10-68); BILIRUBIN - TOTAL 0.21 mg/dL (0.2-1.3); CALCIUM 8.8 mg/dL (8.5-10.1); CARBON DIOXIDE 26.4 mmol/L (21.0-32.0); CHLORIDE - SERUM 100 mmol/L (98-107); CREATININE - SERUM 0.5 mg/dL (0.6-1.3); GLUCOSE 108 mg/dL (74-106); MAGNESIUM - SERUM 1.6 mg/dL (1.8-2.4); PHOSPHOROUS 3.8 mg/dL (2.5-4.9); POTASSIUM - SERUM 3.8 mmol/L (3.5-5.1); PROTEIN - SERUM 6.3 g/dL (6.4-8.2); SODIUM 135 mmol/L (136-145); eGFR NON AFRICAN AMERICAN > 90 mL/min (90-120)
[2020-11-26 07:13] LABS: CALC OSMOLALITY 269 mosm/kg (275-300); UREA NITROGEN 9 mg/dL (7-18)
[2020-11-26 09:09] VITALS: BP 135/50
[2020-11-26 12:17] VITALS: BP 136/53
[2020-11-26 16:33] VITALS: BP 151/62
[2020-11-26 20:56] VITALS: BP 149/51
--- NOTE | 2020-11-27 01:00 | NUR ---
24 HR URINE SAMPLE COLLECTED AND TAKEN TO LAB.
[2020-11-27 04:13] VITALS: BP 165/57
[2020-11-27 07:21] LABS: BASOPHILS 0.6 % (0-2); EOSINOPHILS 0 % (0-7); HEMATOCRIT 29.6 % (36.0-48.0); HEMOGLOBIN 9.8 g/dL (12-16); IMMATURE GRANULOCYTES 0.2 % (0-5); LYMPHOCYTE ABS# 1.88 10x3/uL (1.18-3.74); LYMPHOCYTES 30.3 % (15-50); MCH 28.2 pg (26.0-34.0); MCHC 33.1 g/dL (31.0-37.0); MCV 85.1 fL (80.0-100.0); MEAN PLATELET VOLUME 10.1 fL (7.4-10.4); MONOCYTES 10.3 % (2-11); NEUTROPHIL ABS# 3.63 10x3/uL (1.56-6.13); NEUTROPHILS 58.6 % (40-80); PLATELET COUNT 323 10x3/uL (130-400); RBC 3.48 10x6/uL (4.00-5.40); RDW 13.1 % (11.5-14.5); WBC 6.2 10x3/uL (4.8-10.8)
[2020-11-27 07:33] LABS: ALBUMIN 3.2 g/dL (3.4-5.0); ALKALINE PHOSPHATASE 72 U/L (30-120); ALT (SGPT) 33 U/L (10-68); BILIRUBIN - TOTAL 0.18 mg/dL (0.2-1.3); CALCIUM 9.2 mg/dL (8.5-10.1); CARBON DIOXIDE 21.4 mmol/L (21.0-32.0); CHLORIDE - SERUM 102 mmol/L (98-107); CREATININE - SERUM 0.4 mg/dL (0.6-1.3); GLUCOSE 102 mg/dL (74-106); PROTEIN - SERUM 6.1 g/dL (6.4-8.2); SODIUM 137 mmol/L (136-145); eGFR NON AFRICAN AMERICAN > 90 mL/min (90-120)
[2020-11-27 07:34] LABS: CALC OSMOLALITY 273 mosm/kg (275-300); POTASSIUM - SERUM 4.6 mmol/L (3.5-5.1); UREA NITROGEN 12 mg/dL (7-18)
[2020-11-27 09:19] VITALS: BP 157/70
--- NOTE | 2020-11-27 12:57 | NUR ---
Nutrition Reassessment/Follow-up: Eating well. Diet: Diabetic PO intake: 100% this AM No new wt; last wt: 157# (11/24) Labs noted: Glu 102, Alb 3.2 Meds noted: Tums, Linzess, Protonix, Humalog, Zofran, electrolyte protocol -Nutrition needs unchanged from initial assessment; no new wt available. -RD will follow up within 7 days if pt still admitted.
--- NOTE | 2020-11-27 13:46 | NUR ---
TALKED WITH DR MADISON REGARDING PT WANTING TO DISCUSS PLAN OF CARE AND SCOPE RESULTS DONE BY DR MCINTOSH. STATES HE WILL VISIT WITH HER WHEN THEY MAKE ROUNDS TODAY.
--- NOTE | 2020-11-27 19:15 | NUR ---
REPORT RECEIVED, PT A&O, UP IN BED WITH NO S/S OF DISTRESS OBSERVED. RR EVEN & UNLABORED ON RA. IV TO R FA PATENT. BED LOCKED AND LOWERED, CL IN REACH. ASSESSMENT COMPLETE. WILL CONT TO MONITOR.
[2020-11-27 20:00] VITALS: BP 137/55
[2020-11-28] VITALS: BP 149/56
[2020-11-28 04:00] VITALS: BP 162/63
[2020-11-28 05:34] LABS: BASOPHILS 0.6 % (0-2); EOSINOPHILS 0 % (0-7); HEMATOCRIT 30.5 % (36.0-48.0); HEMOGLOBIN 10.2 g/dL (12-16); IMMATURE GRANULOCYTES 0.1 % (0-5); LYMPHOCYTE ABS# 1.73 10x3/uL (1.18-3.74); LYMPHOCYTES 24.4 % (15-50); MCH 28.2 pg (26.0-34.0); MCHC 33.4 g/dL (31.0-37.0); MCV 84.3 fL (80.0-100.0); MEAN PLATELET VOLUME 9.5 fL (7.4-10.4); NEUTROPHILS 64.9 % (40-80); PLATELET COUNT 299 10x3/uL (130-400); RBC 3.62 10x6/uL (4.00-5.40); RDW 12.9 % (11.5-14.5); WBC 7.1 10x3/uL (4.8-10.8)
[2020-11-28 06:10] LABS: ALBUMIN 3.3 g/dL (3.4-5.0); ALKALINE PHOSPHATASE 94 U/L (30-120); ALT (SGPT) 30 U/L (10-68); BILIRUBIN - TOTAL 0.29 mg/dL (0.2-1.3); CALC OSMOLALITY 272 mosm/kg (275-300); CALCIUM 9.5 mg/dL (8.5-10.1); CARBON DIOXIDE 26.7 mmol/L (21.0-32.0); CHLORIDE - SERUM 100 mmol/L (98-107); GLUCOSE 121 mg/dL (74-106); MAGNESIUM - SERUM 1.7 mg/dL (1.8-2.4); POTASSIUM - SERUM 4.1 mmol/L (3.5-5.1); PROTEIN - SERUM 6.6 g/dL (6.4-8.2); SODIUM 136 mmol/L (136-145); UREA NITROGEN 13 mg/dL (7-18); eGFR NON AFRICAN AMERICAN 88 mL/min (90-120)
[2020-11-28 06:12] LABS: CREATININE - SERUM 0.7 mg/dL (0.6-1.3)
--- NOTE | 2020-11-28 07:10 | NUR ---
Sitting up in bed, awake/alert/oriented, T/R self ad minerva, cont of B/B with BRPs per self ad minerva, denies pain/other discomfort at this time, call light/phone/water within reach, no s/s of acute distress observed.
[2020-11-28] MEDS ORDERED: LINZESS145 MCG PO (08:36)
[2020-11-28 08:38] VITALS: BP 154/56
--- NOTE | 2020-11-28 09:36 | MORECARE ---
CASE MANAGEMENT DISCHARGE SUMMARY PATIENT: MEHRAN LAMAR UNIT: [id number] ADM DATE: 11/21/20 AGE: 70 : 52 SEX: F ROOM/BED: D.5567 AUTHOR: KISHOREDOC PHYSICIAN: REFERRING PHYSICIAN: KYMBERLY LOUISE MD DATE OF SERVICE: 11/28/20 Case Management Discharge Planning Summary COMMENTS ENTERED DATE: 11/28/20 9:32 CT COMMENT TYPE: Discharge Planning REVIEWER: Camille Nascimento DC PLAN: Home ANTICIPATED DC NEEDS: No needs identified CM met with patient to complete initial dc planning assessment. CM educated patient on the CM role and verbal consent given by patient to complete assessment. CM verified patient's address, phone number, and emergency contact phone numbers. 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 She plans to return home and states this is a safe discharge. States her sister will take her home. I discussed availability of home health and DME needs and she denies needs. States she is completely independent. States she no longer drives, but her family or a taxi takes her where she needs to go. I called [facility] on [address] and they will transfer her med to the [facility] as requested. Her PCP is Dr. Fan. Home today, declines needs. NHP REVIEW SUMMARY ANTICIPATED D/C DATE: 11/28/2020 EXPECTED LOS : 7 CASE STATUS: DCP Initiated INITIAL REVIEW: 11/28/2020 INITIAL REVIEWER: Camille Nascimento FINAL DISCHARGE DISPOSITION: : FINAL REVIEWER: FINAL REVIEW DATE: NHP Focus Questions & Answers NHP Evaluation QUESTION: ANSWER Patient gives permission to discuss discharge plans with: (name, relationship and number) : Santo Darden - [phone] Patient's ability to cope with chronic illness : d. No chronic illness Patient's current cognitive status: : *Oriented to person, place, situation, time and present Patient and/or caregiver agree upon recommended discharge plan? : Yes Physical Status: : Independent with ADL's Functional screen assessment: : No issues identified Living Arrangements: : Home with others Is there a likelihood that the patient will require additional services to return to the preadmission environment? 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 : Yes Results of this evaluation have been discussed with: : Patient Physical environment modification needed / anticipated for discharge: : No Medication Management: : Patient states can afford medications Pharmacy name(s): : [facility] [place] Does Patient have transportation to get home and to follow-up medical appointments when discharged from the hospital? : Yes Would patient like to participate in any Care Coordination programs (if applicable): : Not applicable Equipment in use: : Glucometer Equipment in use: : Other Other Equipment comments: : Blood Pressure machine Mental health screen: : No mental health history DCP Re-evaluation QUESTION: ANSWER Would patient like to participate in any Care Coordination programs (if applicable): : Not applicable PATIENT: MEHRAN LAMAR ENCOUNTER: [id number] MEDICAL RECORD#: [id number] ADMISSION DATE: 11/21/2020 DISCHARGE DATE: ATTENDING MD: AMEE: AGE: 70 MARITAL STATUS: S DC PLAN ID: [id number] FACILITY: [facility] PRINTED ON: 11/28/20 9:36 CT All edits/amendments must be made on the electronic document DICTATION DATE: 11/28/20935 [employer] MACHINE TENDER: LUIS A 11/28/20935 RPT#: [id number] DC DATE: STATUS: ADM IN [facility] [address] [place] [address] END OF REPORT
[2020-11-28 12:12] VITALS: BP 153/65
== END 2020-11-28 14:48 | disposition home or self-care (01) | DRG 640 ==
LOC: D.ER 10:19 → D.ICU 13:33 → D.M2 13:33
PROVIDERS: Emergency Medicine; Family Medicine; Internal Medicine Gastroenterology; Internal Medicine Nephrology; Internal Medicine Pulmonary Disease; Specialist; ADMIT Family Medicine; ATTEND Family Medicine
PROC: 0DBV3ZX Excision of Mesentery, Percutaneous Approach, Diagnostic (ICD-10-PCS; 2020-11-23)
PROC: 0DJD8ZZ Inspection of Lower Intestinal Tract, Via Natural or Artificial Opening Endoscopic (ICD-10-PCS; 2020-11-24)
PROC: 0DB68ZX Excision of Stomach, Via Natural or Artificial Opening Endoscopic, Diagnostic (ICD-10-PCS; principal; 2020-11-24 07:00)
DX: E87.1 Hypo-osmolality and hyponatremia (principal); K29.71 Gastritis, unspecified, with bleeding; E87.6 Hypokalemia; D64.9 Anemia, unspecified; E11.65 Type 2 diabetes mellitus with hyperglycemia; G89.29 Other chronic pain; M54.9 Dorsalgia, unspecified; J45.909 Unspecified asthma, uncomplicated; F32.9 Major depressive disorder, single episode, unspecified; M19.90 Unspecified osteoarthritis, unspecified site; K21.9 Gastro-esophageal reflux disease without esophagitis; I25.10 Atherosclerotic heart disease of native coronary artery without angina pectoris; E03.9 Hypothyroidism, unspecified; I11.0 Hypertensive heart disease with heart failure; I50.9 Heart failure, unspecified; K59.09 Other constipation; K57.30 Diverticulosis of large intestine without perforation or abscess without bleeding; Z86.73 Personal history of transient ischemic attack (TIA), and cerebral infarction without residual deficits; Z87.891 Personal history of nicotine dependence; K66.8 Other specified disorders of peritoneum